=== PATIENT | male | born 1940 | race Caucasian/White ===

== ENCOUNTER 2019-05-14 14:50 | Inpatient (IN) | payer MEDICARE, SELFPAY ==
--- NOTE | ~2019-05-14 | XR_ITS ---
EXAMINATION: XR elbow LT 2V EXAM DATE: 05/17/2019 17:04 INDICATION: Postoperative hardware removal, debridement. TECHNIQUE: Frontal and lateral projections of the left elbow. Comparison is made to prior examinatio n from 05/14/2019. FINDINGS: Proximal ulnar, olecranon plate with supporting screws have been removed, except for proxi mal most screw tip which is extending from the olecranon to coronoid. There is a surgical drain. Post erior surgical soft tissue defect. Soft tissue swelling. Bandage. IMPRESSION: Status post debridement, hardware removal. Reviewed, dictated and finalized at location A. SPECIALIST
--- NOTE | ~2019-05-14 | XR_ITS ---
EXAMINATION: XR elbow LT min 3V DATE: 05/14/2019 15:59 INDICATION: Left elbow erythema. TECHNIQUE: 4 views of left elbow were obtained. COMPARISON: None. FINDINGS: Bone alignment is normal. No acute fracture. There is plate and screw fixation of olecranon . There is soft tissue swelling overlying the olecranon. There is mild elbow joint osteoarthritis. No elbow joint effusion. IMPRESSION: 1. No evidence of osteomyelitis. Reviewed, dictated and finalized at location A. PRODUCT MARKETING
[2019-05-14 15:11] VITALS: BP 116/67; PULSE 96; RESP 16; TEMP 37.1; O2SAT 96
--- NOTE | 2019-05-14 16:09 | ED.WOUNDLAC ---
HPI - Wound/Laceration General Chief Complaint: Wound/Laceration <NICOLE Lawson Last Filed: 05/14/19 17:55> Stated Complaint: infection in elbow/ sent from Dr <NICOLE Lawson Last Filed: 05/14/19 17:55> Time Seen by Provider: 05/14/19 15:30 <NICOLE Lawson Last Filed: 05/14/19 17:55> Source: patient and family <NICOLE Lawson Last Filed: 05/14/19 17:55> Mode of arrival: ambulatory <NICOLE Lawson Last Filed: 05/14/19 17:55> Limitations: dementia <NICOLE Lawson Last Filed: 05/14/19 17:55> History of Present Illness HPI narrative: This is a 78 year old male that presents to the ER for left elbow erythema and drainage x 2 days. Patient with history of dementia so history obtained by . Reports history of hardware in this elbow. They are unsure what doctor did this surgery, they think it was at [facility]. Reports he bumped the elbow a couple months ago and since has had a scab to the area. Reports over the last two days the area became red and swollen and he has had some drainage from the area. Denies fever. <NICOLE Lawson Last Filed: 05/14/19 17:55> Related Data Home Medications: Home Medications Medication Instructions Recorded Confirmed omeprazole 40 mg PO DAILY 03/05/19 03/05/19 megestrol [Megace ES] 1,250 mg PO QAM 05/14/19 05/14/19 naproxen 500 mg PO BID PRN 05/14/19 05/14/19 <NICOLE Lawson Last Filed: 05/14/19 17:55> Allergies/Adverse Reactions: Allergies Allergy/AdvReac Type Severity Reaction Status Date / Time inositol Allergy Unknown Unknown Verified 05/14/19 15:25 mirtazapine Allergy Unknown nightmares Verified 05/14/19 15:25 niacin Allergy Unknown Unknown Verified 05/14/19 15:25 <NICOLE Lawson Filed: 05/14/19 17:55> Review of Systems Review of Systems: Narrative: CONSTITUTIONAL: Denies fever SKIN: Reports erythema and drainage MUSCULOSKELETAL: Reports joint pain, and myalgia. NEUROLOGIC: Denies numbness <Mala Fitch PA-C - Last Filed: 05/14/19 17:55> All systems reviewed & are unremarkable except as noted in HPI and below <Mala Fitch PA-C - Last Filed: 05/14/19 17:55> PMFSH Social History Social History: Social History Social History: he said he has 2 children. He is listed as a full code Smoking packs per day: 1.5 Smoking cigarettes per day: 30.0 Years smoked: 45 Smoking pack-years: 67.50 Smoking status: Former smoker Tobacco type: cigarettes Smokeless tobacco user: chewing tobacco Smoking end date: 03/14/09 Alcohol intake: former Substance use: never Gender identity (if verbalized by the patient): Male Spiritual care concerns: No Agree to blood products: Yes <Mala Fitch PA-C - Last Filed: 05/14/19 17:55> Exam Narrative: Exam Narrative: GENERAL: Elderly, well-nourished, and in no acute distress. HEAD: Normocephalic, atraumatic. EYES: EOMI. CHEST: Clear to auscultation. No respiratory distress. No wheezes rales or rhonchi HEART: Regular rate and rhythm. No murmur heard. Normal peripheral pulses. EXTREMITIES: Normal range of motion. Mild-moderate edema and erythema to the left elbow with central punctum with mild amount of drainage SKIN: Warm, dry, no rash. NEURO: No focal deficits. Alert and oriented x3. PSYCH: Normal mood and affect <Mala Fitch PA-C - Last Filed: 05/14/19 17:55> Course PUBLIC INFORMATION COORDINATOR/PA Physician Supervision For this patient encounter, I reviewed the PUBLIC INFORMATION COORDINATOR or PA documentation, treatment plan, and medical decision making; and I had [id number] time with this patient. 78 yo Male presents with pain, swelling, and non-healing left elbow wound. He has a h/o of prior ORIF to that arm. On exam he has swelling and erythema over the bursa. Will plan to admit for septic bursitis and SANDRA. <Jimenez Loomis MD - Last Filed: 05/14/19 19:23>
[2019-05-14 16:19] LABS: Basophils Absolute Auto 0.1 K/mm3 (0.0-0.1); Basophils Percent Auto 0.6 % (0.2-1.2); Eosinophils Absolute Auto 0.3 K/mm3 (0-0.3); Eosinophils Percent Auto 1.9 % (0-4.4); Hematocrit 44.9 % (42.0-52.0); Immature Granulocyte Percent A 2.2 % (0-0.5); Lymphocytes Absolute Auto 2.08 K/mm3 (0.9-3.2); Lymphocytes Percent Auto 15.4 % (18.3-44.2); Mean Corpuscular HGB Conc 33.4 g/dl (32-36); Mean Corpuscular Hemoglobin 32.7 pg (26-34); Mean Corpuscular Volume 97.8 fl (80-100); Mean Platelet Volume 10.1 fl (7.4-10.4); Monocytes Absolute Auto 1.1 K/mm3 (0.1-0.6); Monocytes Percent Auto 7.9 % (2.6-8.5); Neutrophils Absolute Auto 9.7 K/mm3 (1.3-6.7); Platelet Count Result 159 k/mm3 (150-375); Red Blood Count 4.59 M/mm3 (4.6-6.20); Red Cell Distribution Width 14.3 % (11.5-14.5); White Blood Count 13.5 K/mm3 (4.5-10.0)
[2019-05-14 16:36] LABS: Blood Urea Nitrogen 39 mg/dL (9-20); Calcium 9.4 mg/dL (8.4-10.2); Carbon Dioxide 24 mmol/L (22-30); Chloride 103 mmol/L (98-107); Estimated CRCL calculation 52 ml/min; Estimated Glomerular Filt Rate > 60; Glucose 90 mg/dL (75-110); Potassium 4.7 mmol/L (3.4-5.0); Sodium 139 mmol/L (137-145)
[2019-05-14 16:43] LABS: Erythrocyte Sedimentation Rate 63 mm/hr (0-20)
[2019-05-14 16:47] LABS: CRP 14.7 mg/dL (<1.0)
[2019-05-14] MEDS: SODIUM CHLORIDE 0.9% IV 1,000 ML 999 ML IV CONT (17:21)
--- NOTE | 2019-05-14 18:57 | ADMGEN ---
This patient, Ivania Lezama, was admitted to 2 Medical Room 257-. Patient/family oriented to hospital policies and general routines including ID bracelet, bed and alarms, visiting hours, pain management, procedures, bathroom and other care routines, personal items, smoking policy, room service/diet, and visiting hours. Valuables list has been completed. Information on how to activate the Rapid Response Team has been discussed. Patient/Family are encouraged to report perceived risks to care and to ask questions if they do not understand what they are told or what they should do.
[2019-05-14 19:19] VITALS: BP 140/86; PULSE 79; RESP 22; TEMP 35.8; O2SAT 96
[2019-05-14 20:15] VITALS: O2SAT 96
[2019-05-14] MEDS: SODIUM CHLORIDE 0.9% IV 1,000 ML 125 ML IV CONT (20:24)
[2019-05-14 22:00] VITALS: BP 120/56; PULSE 76; RESP 20; TEMP 36.4; O2SAT 96
[2019-05-15] VITALS (7 sets, daily range): BP systolic 114–121; BP diastolic 48–62; PULSE 72–88; RESP 16–22; TEMP 36.4–37.2; O2SAT 91–95
[2019-05-15] MEDS: SODIUM CHLORIDE 0.9% IV 1,000 ML 125 ML IV CONT ×3 (04:21→20:16)
--- NOTE | 2019-05-15 11:41 | WPDINFPN2 ---
Progress Note: A&P Assessment and Plan (1) Septic bursitis of elbow: Qualifiers: Laterality: left Qualified Code(s): M71.122 - Other infective bursitis, left elbow Code(s): M71.129 - Other infective bursitis, unspecified elbow Status: Acute Assessment and Plan: 1. 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 Staph suspected by gram stain 2. RA with immunosuppression 3. Dementia 4. Protein calorie malnutrition REC Vanc # 2, Ancef #1. F/U sinus tract culture, deep space (at level of hardware) wound culture would also be helpful. Anticipate prolonged IV Rx, 3-4 weeks. Hardware removal if possible, disc with Dr. Ruiz. Subjective Date/time seen: 05/15/19 11:41 Objective Data Vital Signs Vital Signs: Vital Signs - 24 hr 05/14/19 15:11 05/14/19 19:19 05/14/19 20:15 Temperature 37.1 C 35.8 C L Pulse Rate 96 79 Respiratory Rate 16 22 H Blood Pressure 116/67 140/86 Pulse Oximetry 96 96 96 05/14/19 22:00 05/15/19 02:32 05/15/19 06:00 Temperature 36.4 C 36.4 C Pulse Rate 76 72 79 Respiratory Rate 20 16 20 Blood Pressure 120/56 L 116/62 Pulse Oximetry 96 95 93 05/15/19 10:22 Temperature Pulse Rate Respiratory Rate Blood Pressure Pulse Oximetry 91 Intake/Output Intake/Output: Intake & Output 05/12/19 05/13/19 05/14/19 05/15/19 23:59 23:59 23:59 23:59 Intake Total 1350 1254 Output Total 450 Balance 1350 804 Meds/Results Medications: Active Medications Generic Name Dose Route Start Last Admin Trade Name Freq PRN Reason Stop Dose Admin Acetaminophen 1,000 mg in 100 mls @ 400 mls/hr 05/14/19 17:31 Ofirmev 1,000 Mg Ivpb IVPB 05/15/19 17:32 Q6H PRN Mild Pain (1-3) or Fever Sodium Chloride 1,000 mls @ 125 mls/hr 05/14/19 17:45 05/15/19 05:58 Normal Saline Iv IV CONT 125 mls/hr .Q8H YUKI Infusion Vancomycin HCl 1,000 mg in 250 mls @ 250 mls/hr 05/15/19 17:00 Vancomycin 1,000 Mg/D5w 250 Ml IVPB Q24H YUKI Cefazolin Sodium 1 gm in 50 mls @ 100 mls/hr 05/15/19 14:00 Ancef 1 Gm/D5w 50 Ml Pm IVPB Q8HR YUKI Radiology Results: ITS Impressions Elbow X-Ray 05/14/19 16:04 IMPRESSION: 1. No evidence of osteomyelitis. Labs Labs: Laboratory Results - last 24 hr 05/14/19 05/14/19 16:07 16:07 WBC 13.5 H RBC 4.59 L Hgb 15.0 Hct 44.9 MCV 97.8 MCH 32.7 MCHC 33.4 RDW 14.3 Plt Count 159 MPV 10.1 Immature Gran % (Auto) 2.2 H Neut % (Auto) 72.0 Lymph % (Auto) 15.4 L [place] % (Auto) 7.9 Eos % (Auto) 1.9 Baso % (Auto) 0.6 Lymph # (Auto) 2.08 [place] # (Auto) 1.1 H Eos # (Auto) 0.3 Baso # (Auto) 0.1 Abs Immat Gran (auto) 0.30 H Absolute Neuts (auto) 9.7 H Absolute Nucleated RBC 0.0 Nucleated RBC % 0.0 ESR 63 H Sodium 139 Potassium 4.7 Chloride 103 Carbon Dioxide 24 BUN 39 H D Creatinine 1.00 Estim Creat Clear Calc 52 Estimated GFR > 60 Glucose 90 Calcium 9.4 C-Reactive Protein 14.7 H
--- NOTE | 2019-05-15 12:07 | PM.CNOR ---
Assessment and Plan Assessment and plan (1) Septic bursitis of elbow: Qualifiers: Laterality: left Qualified Code(s): M71.122 - Other infective bursitis, left elbow Code(s): M71.129 - Other infective bursitis, unspecified elbow Status: Acute Assessment and Plan: 78-year-old male who has got a septic olecranon bursitis left elbow. I discussed the situation with the patient, his daughter and also with Dr. Barraza the infectious disease specialist. The best course of action is going to be to remove the hardware a medical clearance. I have spoken also with Dr. Erazo regarding this. Tentatively this is scheduled for May 16. This should be enough time to get him tuned up medically. He is currently on antibiotics and the tissue cultures are waiting. We will plan on obtaining more cultures at the time of surgery. Risks and potential complications were discussed in detail and questions answered. Thank you for the consultation. History of Present Illness HPI Consult date: 05/15/19 Consult reason: other ( Septic bursitis left elbow) Chief complaint: infection in elbow/ sent from Dr Champion: 78-year-old male who has got a septic bursitis is left elbow. According to his daughter, he had an injury to this in February which sounds like a contusion. Gradually, the skin broke down and he developed a small area of drainage which had been treated with local care. It had apparently healed left however over this past weekend it to the point that he was admitted to the hospital through the ER for management of this. Review of Systems Constitutional: Constitutional: Reports no additional constitutional complaints, Denies excessive sweating and Denies fatigue Eyes: Eyes: Reports no additional eye complaints ENT: Reports system reviewed and no additional complaints, except as documented Cardiovascular: Cardiovascular: Denies chest pain at rest and Denies dyspnea Respiratory: Respiratory: Reports no additional respiratory complaints and Denies dyspnea Gastrointestinal: Gastrointestinal: Reports no additional gastrointestinal complaints Musculoskeletal: Musculoskeletal: Reports as per HPI Integumentary/Breasts: Skin/Breast: Reports system reviewed and no additional complaints, except as docu Neurologic: Reports as per HPI Endocrine: Endocrine: Denies excessive sweating and Denies fatigue Hematologic/Lymphatic: Hematologic/Lymphatic: Denies easy bleeding and Denies easy bruising PMFSH Past Medical History Medical History (Updated 05/14/19 @ 17:55 by Mala Fitch PA-C) Dysphagia Esophageal stricture GERD with esophagitis Hard of hearing Laryngeal cancer Pneumonia Rheumatoid arthritis Serotonin syndrome Surgical History Surgical History (Updated 05/15/19 @ 12:44 by Truong Ruiz MD) Fracture of left olecranon process ORIF in 2008 Hx of cholecystectomy Hx of tracheostomy S/P right hip fracture 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 He is listed as a full code Smoking packs per day: 1.5 Smoking cigarettes per day: 30.0 Years smoked: 45 Smoking pack-years: 67.50 Smoking status: Former smoker Tobacco type: cigarettes Smokeless tobacco user: chewing tobacco Smoking end date: 03/14/09 Additional smoking assessment comments: CURRENTLY CHEWS TOBACCO Alcohol intake: former Substance use: never Gender identity (if verbalized by the patient): Male Spiritual care concerns: No Agree to blood products: Yes Meds Home Medications and Allergies Home Medications Medication Instructions Recorded Confirmed Type omeprazole 40 mg PO DAILY 03/05/19 05/14/19 History cyanocobalamin (vitamin B-12) 1,000 mcg PO DAILY #30 cap 03/07/19 05/14/19 Rx escitalopram oxalate 5 mg tablet 5 mg PO DAILY #30 tablet 04/13/19 05/14/19 Rx memantine 10
--- NOTE | 2019-05-15 13:42 | CONS_ITS ---
DATE OF CONSULTATION: 05/15/2019 REASON FOR CONSULTATION: Left elbow infection. HISTORY OF PRESENT ILLNESS: The patient is a 78-year-old male who has some degree of dementia and cannot provide a comprehensive history, but his daughter is at the bedside and is able to do so. The patient had fracture of the proximal radius, which was repaired with plate and screws at [facility] approximately 11 years ago. He since then has also had bipolar replacement. He has known rheumatoid arthritis and until last fall was receiving every 3 months Remicade infusions. He then advanced to every 2 months due to flare of his arthritis and is due for his 3rd dose at that schedule at the end of this month. He does have occasional recurrent falls and was here in the hospital in February, but that time had no trauma to the left elbow rather to the left ribs. Sometime soon thereafter, he developed a crusted lesion over the olecranon on the left side, which seemed to heal. However, beginning 3 days before the present admission, spontaneous drainage of cloudy fluid began in the same area of the olecranon with associated redness, swelling, and some pain. He saw Dr. Manriquez surgical processor on the day of admission, was sent to the emergency room for admission. He was started on vancomycin and ceftriaxone yesterday, now continues on the same. He has otherwise been on no recent antibiotics. No fever, chills, sweats, known trauma except as above, prior operations to the elbow. When he does have flare of his arthritis, this involves multiple joints over the hands. ALLERGIES: NONE PERTINENT. HABITS: Quit smoking in 2009. No alcohol. PRESENT MEDICATION LIST: No ongoing immunosuppressants except as above. PAST MEDICAL HISTORY: In addition to the above, esophageal stricture, hearing loss, past pneumonia, serotonin syndrome, cholecystectomy, and tracheostomy. He is not on home O2. 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 FAMILY HISTORY: Colon cancer, bone cancer. SOCIAL HISTORY: He has a 24-hour care at home. Two children. Retired. REVIEW OF SYSTEMS: Limited by the patient's memory and communicative ability. A 14-point review otherwise negative. He has gained back the 10 pounds of weight loss that occurred in February. PHYSICAL EXAMINATION: GENERAL: This is a chronically ill-appearing male, thin, not cachectic, no acute distress. VITAL SIGNS: Afebrile since arrival 116/62, 79, 20, 91% to 96%. He is on no supplemental oxygen. SKIN: Normal turgor. Warm and dry. No rashes. NODES: He has no axillary or cervical adenopathy. EENT: The pupils equal, round, and reactive to light. The oropharynx, oral mucosa are clear. NECK: Open tracheostomy in place without any introducer. No neck masses. Neck is symmetric. LUNGS: Mildly diminished breath sounds, otherwise, clear to auscultation and percussion. CHEST: Equal expansion. Normal AP diameter. CARDIAC: Soft, S1, S2. Regular rate and rhythm. No murmurs or gallops. ABDOMEN: Nontender, soft. No organomegaly. No masses. EXTREMITIES: Without clubbing, cyanosis, or edema. MUSCULOSKELETAL: Over the left elbow, he has minimal erythema and edema with an open 0.5 cm wound. He has good range of motion of the elbow. No tenderness. NEUROVASCULAR: Intact distally. LABORATORY DATA: From the office, Gram stain, few white cells and few gram-positive cocci in clusters. Culture is ongoing. Blood cultures, no growth after very short incubation. MRSA screen also in process. His white blood cell count 13.5, hemoglobin 15.0, and platelets are 159. He has a minimal left shift on differential. His chemistry panel normal except for BUN 39, previously was 13. His CRP 14.7. RADIOLOGICAL DATA:
--- NOTE | 2019-05-15 17:14 | PM.IMHP ---
H&P: HPI History of Present Illness Chief complaint: infection in elbow/ sent from Dr Champion: Ivania Lezama is a 78 year old male with mild dementia no family member is present provide detailed review of symptoms most of the history is recorded from the chart and talking with the patient, patient with history of rheumatoid arthritis on and treated with Remicade, could not history patient had a fracture of the left elbow 11 years ago any to was repaired with plate and screws, the patient had injured the left elbow and developed redness swelling and presented emergency department further evaluation is seems to have significant infection with abscess and got a septic olecranon bursitis left elbow patient is seen by orthopedic surgeon and recommending patient will benefit from removing hardware which were placed 11 years ago to clean out infection. Patient has had surgery in the past, there is no complication, and stay his no history of cardiac issues he is able to ambulate and able to climb states without any chest pain or shortness of breath, currently denies any fever or chills, patient is scheduled for surgery on Review of Systems Review of Systems: All systems reviewed & are unremarkable except as noted in HPI and below PMFSH Past Medical History Medical History (Updated 05/14/19 @ 17:55 by Mala Fitch PA-C) Dysphagia Esophageal stricture GERD with esophagitis Hard of hearing Laryngeal cancer Pneumonia Rheumatoid arthritis Serotonin syndrome Surgical History Surgical History (Updated 05/15/19 @ 12:44 by Truong Ruiz MD) Fracture of left olecranon process ORIF in 2008 Hx of cholecystectomy Hx of tracheostomy S/P right hip fracture 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 He is listed as a full code Smoking packs per day: 1.5 Smoking cigarettes per day: 30.0 Years smoked: 45 Smoking pack-years: 67.50 Smoking status: Former smoker Tobacco type: cigarettes Smokeless tobacco user: chewing tobacco Smoking end date: 03/14/09 Additional smoking assessment comments: CURRENTLY CHEWS TOBACCO Alcohol intake: former Substance use: never Gender identity (if verbalized by the patient): Male Spiritual care concerns: No Agree to blood products: Yes Meds Home Medications and Allergies Home Medications Medication Instructions Recorded Confirmed Type omeprazole 40 mg PO DAILY 03/05/19 05/14/19 History cyanocobalamin (vitamin B-12) 1,000 mcg PO DAILY #30 cap 03/07/19 05/14/19 Rx escitalopram oxalate 5 mg tablet 5 mg PO DAILY #30 tablet 04/13/19 05/14/19 Rx memantine 10 mg tablet 10 mg PO BID #60 tablet 04/13/19 05/14/19 Rx megestrol [Megace ES] 1,250 mg PO QAM 05/14/19 05/14/19 History naproxen 500 mg PO BID PRN 05/14/19 05/14/19 History Allergies Allergy/AdvReac Type Severity Reaction Status Date / Time inositol Allergy Unknown Unknown Verified 05/14/19 15:25 mirtazapine Allergy Unknown nightmares Verified 05/14/19 15:25 niacin Allergy Unknown Unknown Verified 05/14/19 15:25 Vital Signs Vital Signs - 24 hr 05/14/19 19:19 05/14/19 20:15 05/14/19 22:00 Temperature 96.5 F L 97.6 F Pulse Rate 79 76 Respiratory Rate 22 H 20 Blood Pressure 140/86 120/56 L Pulse Oximetry 96 96 96 05/15/19 02:32 05/15/19 06:00 05/15/19 10:22 Temperature 97.6 F Pulse Rate 72 79 Respiratory Rate 16 20 Blood Pressure 116/62 Pulse Oximetry 95 93 91 Exam Const: General: comfortable and no acute distress HENMT: General nose exam: Normal nares present Mouth: Yes moist mucous membranes Eyes: General: appearance normal, both eyes and all related structures Sclera: sclerae normal Neck: Other: Patient with laryngeal cancer and laryngectomy Chest: Other: There is no obvious deformity Resp: Effort & Inspection: normal respiratory effort Auscult
[2019-05-16] MEDS: SODIUM CHLORIDE 0.9% IV 1,000 ML 125 ML IV CONT ×3 (02:30→21:40)
[2019-05-16 06:00] VITALS: BP 149/50; PULSE 84; RESP 22; TEMP 37.4; O2SAT 97
[2019-05-16 06:01] LABS: Basophils Absolute Auto 0.1 K/mm3 (0.0-0.1); Basophils Percent Auto 0.8 % (0.2-1.2); Eosinophils Absolute Auto 0.3 K/mm3 (0-0.3); Eosinophils Percent Auto 3.4 % (0-4.4); Hematocrit 36.9 % (42.0-52.0); Hemoglobin 12.6 g/dL (14.0-18.0); Immature Granulocyte Absolute 0.33 K/mm3 (0.00-0.031); Immature Granulocyte Percent A 4.3 % (0-0.5); Lymphocytes Absolute Auto 1.75 K/mm3 (0.9-3.2); Lymphocytes Percent Auto 22.8 % (18.3-44.2); Mean Corpuscular HGB Conc 34.1 g/dl (32-36); Mean Corpuscular Hemoglobin 32.7 pg (26-34); Mean Corpuscular Volume 95.8 fl (80-100); Mean Platelet Volume 10.1 fl (7.4-10.4); Monocytes Absolute Auto 0.8 K/mm3 (0.1-0.6); Monocytes Percent Auto 9.8 % (2.6-8.5); Neutrophils Absolute Auto 4.5 K/mm3 (1.3-6.7); Neutrophils Percent Auto 58.9 % (45.5-73.1); Platelet Count Result 156 k/mm3 (150-375); Red Blood Count 3.85 M/mm3 (4.6-6.20); Red Cell Distribution Width 14.4 % (11.5-14.5); White Blood Count 7.7 K/mm3 (4.5-10.0)
[2019-05-16 06:37] LABS: Blood Urea Nitrogen 17 mg/dL (9-20); Calcium 8.3 mg/dL (8.4-10.2); Carbon Dioxide 21 mmol/L (22-30); Chloride 109 mmol/L (98-107); Estimated CRCL calculation 64 ml/min; Estimated Glomerular Filt Rate > 60; Glucose 86 mg/dL (75-110); Potassium 3.7 mmol/L (3.4-5.0); Sodium 137 mmol/L (137-145)
[2019-05-16 08:00] VITALS: O2SAT 95
--- NOTE | 2019-05-16 09:04 | PC.NURSE ---
DR GUNN NOTIFIED OF PATIENT POSITIVE FOR MRSA NARES
[2019-05-16] MEDS: MUPIROCIN 2% OINT 22 GM TUBE 1 APPLIC EACH NARE ×2 (10:53→21:39)
--- NOTE | 2019-05-16 11:59 | WPDINFPN2 ---
Progress Note: A&P Assessment and Plan (1) Septic bursitis of elbow: Qualifiers: Laterality: left Qualified Code(s): M71.122 - Other infective bursitis, left elbow Code(s): M71.129 - Other infective bursitis, unspecified elbow Status: Acute Assessment and Plan: 1. 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 Staph aureus isolated, which may or may not represent the underlying pathogen 2. RA with immunosuppression 3. Dementia 4. 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 Deep space (at level of hardware) wound culture would also be helpful. Anticipate prolonged IV Rx, 3-4 weeks. Hardware removal anticipated tomorrow. Daughter not at bedside currently Subjective Date/time seen: 05/16/19 11:59 Objective Data Vital Signs Vital Signs: Vital Signs - 24 hr 05/15/19 14:00 05/15/19 19:08 05/15/19 20:05 Temperature 36.5 C Pulse Rate 88 Respiratory Rate 22 H Blood Pressure 114/48 L Pulse Oximetry 92 93 95 05/15/19 22:00 05/16/19 06:00 Temperature 37.2 C 37.4 C Pulse Rate 77 84 Respiratory Rate 22 H 22 H Blood Pressure 121/51 L 149/50 H Pulse Oximetry 91 97 Intake/Output Intake/Output: Intake & Output 05/13/19 05/14/19 05/15/19 05/16/19 23:59 23:59 23:59 23:59 Intake Total 1350 3700 2050 Output Total 1275 1300 Balance 1350 2425 750 Meds/Results Medications: Active Medications Generic Name Dose Route Start Last Admin Trade Name Freq PRN Reason Stop Dose Admin Sodium Chloride 1,000 mls @ 125 mls/hr 05/14/19 17:45 05/16/19 10:52 Normal Saline Iv IV CONT 125 mls/hr .Q8H YUKI Administration Vancomycin HCl 1,000 mg in 250 mls @ 250 mls/hr 05/15/19 17:00 05/15/19 19:08 Vancomycin 1,000 Mg/D5w 250 Ml IVPB Infused Q24H YUKI Infusion Cefazolin Sodium 1 gm in 50 mls @ 100 mls/hr 05/15/19 14:00 05/16/19 06:25 Ancef 1 Gm/D5w 50 Ml Pm IVPB Infused Q8HR [facility] Infusion Mupirocin 1 applic 05/16/19 09:20 05/16/19 10:53 Bactroban 2% Oint EACH NARE 05/20/19 21:01 1 applic Q12HR YUKI Administration Saccharomyces Boulardii 250 mg 05/16/19 13:00 Florastor PO TID [facility] Radiology Results: ITS Impressions Elbow X-Ray 05/14/19 16:04 IMPRESSION: 1. No evidence of osteomyelitis. Labs Labs: Laboratory Results - last 24 hr 05/16/19 05/16/19 05:01 05:01 WBC 7.7 RBC 3.85 L Hgb 12.6 L Hct 36.9 L MCV 95.8 MCH 32.7 MCHC 34.1 RDW 14.4 Plt Count 156 MPV 10.1 Immature Gran % (Auto) 4.3 H Neut % (Auto) 58.9 Lymph % (Auto) 22.8 [place] % (Auto) 9.8 H Eos % (Auto) 3.4 Baso % (Auto) 0.8 Lymph # (Auto) 1.75 [place] # (Auto) 0.8 H Eos # (Auto) 0.3 Baso # (Auto) 0.1 Abs Immat Gran (auto) 0.33 H Absolute Neuts (auto) 4.5 Absolute Nucleated RBC 0.0 Nucleated RBC % 0.0 Sodium 137 Potassium 3.7 Chloride 109 H Carbon Dioxide 21 L BUN 17 D Creatinine 0.80 Estim Creat Clear Calc 64 Estimated GFR > 60 Glucose 86 Calcium 8.3 L
[2019-05-16] MEDS: SACCHAROMYCES BOULARDII 250 MG CAPSULE PO ×2 (12:21→17:04)
[2019-05-16 14:00] VITALS: BP 131/62; PULSE 80; RESP 18; TEMP 36.6; O2SAT 92
--- NOTE | 2019-05-16 15:09 | PM.IMPN ---
Progress Note: A&P Assessment and Plan (1) Septic bursitis of elbow: Qualifiers: Laterality: left Qualified Code(s): M71.122 - Other infective bursitis, left elbow Code(s): M71.129 - Other infective bursitis, unspecified elbow Status: Acute Assessment and Plan: 05/16/19 15:09 Ivania Lezama is a 78 year old male with mild dementia no family member is present provide detailed review of symptoms most of the history is recorded from the chart and talking with the patient, patient with history of rheumatoid arthritis on and treated with Remicade, could not history patient had a fracture of the left elbow 11 years ago any to was repaired with plate and screws, the patient had injured the left elbow and developed redness swelling and presented emergency department further evaluation is seems to have significant infection with abscess and got a septic olecranon bursitis left elbow patient is seen by orthopedic surgeon and recommending patient will benefit from removing hardware which were placed 11 years ago to clean out infection. Patient has had surgery in the past, there is no complication, and stay his no history of cardiac issues he is able to ambulate and able to climb states without any chest pain or shortness of breath, patient has no new complaints is positive nasal MRSA currently denies any fever or chills, patient is scheduled for surgery on (2) Acute kidney injury: Code(s): N17.9 - Acute kidney failure, unspecified Status: Acute Assessment and Plan: Appears to be pre azotemia most likely secondary to dehydration will gently hydrate the patient and monitor kidney function (3) Dementia: Qualifiers: Dementia behavioral disturbance: with behavioral disturbance Dementia type: unspecified type Qualified Code(s): F03.91 - Unspecified dementia with behavioral disturbance Code(s): F03.90 - Unspecified dementia without behavioral disturbance Status: Acute Assessment and Plan: Patient is clinically stable (4) Urinary retention: Code(s): R33.9 - Retention of urine, unspecified Status: Acute Assessment and Plan: Will continue home regimen Subjective Date/time seen: 05/16/19 15:09 Ivania Lezama is a 78 year old male with mild dementia no family member is present provide detailed review of symptoms most of the history is recorded from the chart and talking with the patient, patient with history of rheumatoid arthritis on and treated with Remicade, could not history patient had a fracture of the left elbow 11 years ago any to was repaired with plate and screws, the patient had injured the left elbow and developed redness swelling and presented emergency department further evaluation is seems to have significant infection with abscess and got a septic olecranon bursitis left elbow patient is seen by orthopedic surgeon and recommending patient will benefit from removing hardware which were placed 11 years ago to clean out infection. Patient has had surgery in the past, there is no complication, and stay his no history of cardiac issues he is able to ambulate and able to climb states without any chest pain or shortness of breath, patient has no new complaints is positive nasal MRSA currently denies any fever or chills, patient is scheduled for surgery on Review of Systems Review of Systems: All systems reviewed & are unremarkable except as noted in HPI and below Exam Const: General: comfortable and no acute distress HENMT: General nose exam: Normal nares present Mouth: Yes moist mucous membranes Eyes: General: appearance normal, both eyes and all related structures Sclera: sclerae normal Neck: Other: Patient with laryngeal cancer and laryngectomy Chest: Other: There is no obvious deformity Resp: Effort & Inspection: normal respiratory effort Auscultation: clear to auscultation bilaterally Cardio: Rate: regular rate Rhy
[2019-05-16 22:00] VITALS: BP 1227/68; PULSE 71; RESP 20; TEMP 36.6; O2SAT 96
[2019-05-17] VITALS (13 sets, daily range): BP systolic 147–182; BP diastolic 54–90; PULSE 65–85; RESP 16–22; TEMP 36.2–37.1; O2SAT 93–100
[2019-05-17 06:07] LABS: Basophils Absolute Auto 0.1 K/mm3 (0.0-0.1); Basophils Percent Auto 0.7 % (0.2-1.2); Blood Urea Nitrogen 13 mg/dL (9-20); Calcium 8.3 mg/dL (8.4-10.2); Carbon Dioxide 20 mmol/L (22-30); Chloride 108 mmol/L (98-107); Eosinophils Absolute Auto 0.3 K/mm3 (0-0.3); Eosinophils Percent Auto 3.6 % (0-4.4); Estimated CRCL calculation 64 ml/min; Estimated Glomerular Filt Rate > 60; Glucose 86 mg/dL (75-110); Hematocrit 38.5 % (42.0-52.0); Hemoglobin 12.9 g/dL (14.0-18.0); Immature Granulocyte Absolute 0.31 K/mm3 (0.00-0.031); Immature Granulocyte Percent A 4.4 % (0-0.5); Lymphocytes Absolute Auto 1.77 K/mm3 (0.9-3.2); Lymphocytes Percent Auto 25.3 % (18.3-44.2); Mean Corpuscular HGB Conc 33.5 g/dl (32-36); Mean Corpuscular Hemoglobin 31.9 pg (26-34); Mean Corpuscular Volume 95.3 fl (80-100); Monocytes Absolute Auto 0.7 K/mm3 (0.1-0.6); Monocytes Percent Auto 9.6 % (2.6-8.5); Neutrophils Absolute Auto 3.9 K/mm3 (1.3-6.7); Neutrophils Percent Auto 56.4 % (45.5-73.1); Platelet Count Result 163 k/mm3 (150-375); Potassium 3.7 mmol/L (3.4-5.0); Red Blood Count 4.04 M/mm3 (4.6-6.20); Red Cell Distribution Width 14.1 % (11.5-14.5); Sodium 139 mmol/L (137-145)
[2019-05-17] MEDS: SODIUM CHLORIDE 0.9% IV 1,000 ML 125 ML IV CONT ×2 (06:22→17:57)
--- NOTE | 2019-05-17 08:42 | WPDANESEPPF ---
Anes - Initial Pre Proc Eval Procedure: Operation Date: 05/17/19 13:00 Proposed Procedures p Incision And Drainage Left Olecranon - Truong Ruiz MD s Removal Hardware Left Elbow - Truong Ruiz MD Date/Time: 05/17/19 08:42 Surgeon: Vinh Christina MD Pre Op Diagnosis: infection in elbow/ sent from Dr Patient Data Age: 78 Gender: M Height: 1.8 m Weight: 69 kg Last Vital Signs Temp 37.1 C 05/17/19 06:00 Pulse 85 05/17/19 06:00 Resp 22 H 05/17/19 06:00 BP 159/74 H 05/17/19 06:00 Pulse Ox 98 05/17/19 06:00 Allergies Allergy/AdvReac Type Severity Reaction Status Date / Time inositol Allergy Unknown Unknown Verified 05/17/19 12:32 mirtazapine Allergy Unknown nightmares Verified 05/17/19 12:32 niacin Allergy Unknown Unknown Verified 05/17/19 12:32 Home Medications Medication Instructions Recorded Confirmed Type omeprazole 40 mg PO DAILY 03/05/19 05/14/19 History cyanocobalamin (vitamin B-12) 1,000 mcg PO DAILY #30 cap 03/07/19 05/14/19 Rx escitalopram oxalate 5 mg tablet 5 mg PO DAILY #30 tablet 04/13/19 05/14/19 Rx memantine 10 mg tablet 10 mg PO BID #60 tablet 04/13/19 05/14/19 Rx megestrol [Megace ES] 1,250 mg PO QAM 05/14/19 05/14/19 History naproxen 500 mg PO BID PRN 05/14/19 05/14/19 History Laboratory Tests 05/17/19 05/17/19 05:33 05:33 WBC 7.0 K/mm3 K/mm3 (4.5-10.0) RBC 4.04 M/mm3 L M/mm3 (4.6-6.20) Hgb 12.9 g/dL L g/dL (14.0-18.0) Hct 38.5 % L % (42.0-52.0) MCV 95.3 fl fl (80-100) MCH 31.9 pg pg (26-34) MCHC 33.5 g/dl g/dl (32-36) RDW 14.1 % % (11.5-14.5) Plt Count 163 k/mm3 k/mm3 (150-375) MPV 10.0 fl fl (7.4-10.4) Immature Gran % (Auto) 4.4 % H % (0-0.5) Neut % (Auto) 56.4 % % (45.5-73.1) Lymph % (Auto) 25.3 % % (18.3-44.2) [place] % (Auto) 9.6 % H % (2.6-8.5) Eos % (Auto) 3.6 % % (0-4.4) Baso % (Auto) 0.7 % % (0.2-1.2) Lymph # (Auto) 1.77 K/mm3 K/mm3 (0.9-3.2) [place] # (Auto) 0.7 K/mm3 H K/mm3 (0.1-0.6) Eos # (Auto) 0.3 K/mm3 K/mm3 (0-0.3) Baso # (Auto) 0.1 K/mm3 K/mm3 (0.0-0.1) Abs Immat Gran (auto) 0.31 K/mm3 H K/mm3 (0.00-0.031) Absolute Neuts (auto) 3.9 K/mm3 K/mm3 (1.3-6.7) Absolute Nucleated RBC 0.0 K/mm3 K/mm3 (0.0-0.012) Nucleated RBC % 0.0 % % (0.0-0.2) Sodium 139 mmol/L mmol/L (137-145) Potassium 3.7 mmol/L mmol/L (3.4-5.0) Chloride 108 mmol/L H mmol/L (98-107) Carbon Dioxide 20 mmol/L L mmol/L (22-30) BUN 13 mg/dL mg/dL (9-20) Creatinine 0.80 mg/dL mg/dL (0.7-1.3) Estim Creat Clear Calc 64 ml/min ml/min Estimated GFR > 60 (59 - ) Glucose 86 mg/dL mg/dL (75-110) Calcium 8.3 mg/dL L mg/dL (8.4-10.2) ECG: Date of Service: 03/05/19 Procedure(s): CA 12 lead EKG Accession Number(s): [id number] cc: ~ Measurements Intervals [employer] Rate: 71 P: 49 ND: 189 QRS: 34 QRSD: 142 T: 17 QT: 422 QTc: 459 Interpretive Statements SINUS RHYTHM RIGHT BUNDLE BRANCH BLOCK LATERAL INFARCT, AGE INDETERMINATE INFERIOR INFARCT, AGE INDETERMINATE BASELINE ARTIFACT- V3 ABNORMAL ECG Electronically Signed On 03-05-2019 9:21:10 [employer]ORATORY ASSOCIATE by Eddie Seals D.O. Dictated By: Eddie Seals DO 03/05/19 0852 Patient hx anesthesia problems: none Family hx anesthesia problems: none [facility] Past Medical History Medical History (Updated 05/17/19 @ 08:43 by Hans Medina MD) Acute kidney injury Cancer epiglottis, STAGE 3 Confusion Dementia Depression Dysphagia Esophageal stricture
--- NOTE | 2019-05-17 12:05 | PC.NURSE ---
To surgery with OR staff. Daughter with patient.
[2019-05-17] MEDS: LACTATED RINGERS 1,000 ML 30 ML IV CONT (12:15)
--- NOTE | 2019-05-17 12:50 | PM.IMPN ---
Progress Note: A&P Assessment and Plan (1) Septic bursitis of elbow: Qualifiers: Laterality: left Qualified Code(s): M71.122 - Other infective bursitis, left elbow Code(s): M71.129 - Other infective bursitis, unspecified elbow Status: Acute Assessment and Plan: 05/17/19 12:50 Ivania Lezama is a 78 year old male with mild dementia no family member is present provide detailed review of symptoms most of the history is recorded from the chart and talking with the patient, patient with history of rheumatoid arthritis on and treated with Remicade, could not history patient had a fracture of the left elbow 11 years ago any to was repaired with plate and screws, the patient had injured the left elbow and developed redness swelling and presented emergency department further evaluation is seems to have significant infection with abscess and got a septic olecranon bursitis left elbow patient is seen by orthopedic surgeon and recommending patient will benefit from removing hardware which were placed 11 years ago to clean out infection. Patient has had surgery in the past, there is no complication, and stay his no history of cardiac issues he is able to ambulate and able to climb states without any chest pain or shortness of breath, patient has no new complaints is positive nasal MRSA patient is treated with Ancef and vancomycin, currently denies any fever or chills, patient is scheduled for surgery later today daughter is present in the room (2) Acute kidney injury: Code(s): N17.9 - Acute kidney failure, unspecified Status: Acute Assessment and Plan: Appears to be pre azotemia most likely secondary to dehydration will gently hydrate the patient and monitor kidney function (3) Dementia: Qualifiers: Dementia type: unspecified type Dementia behavioral disturbance: with behavioral disturbance Qualified Code(s): F03.91 - Unspecified dementia with behavioral disturbance Code(s): F03.90 - Unspecified dementia without behavioral disturbance Status: Acute Assessment and Plan: Patient is clinically stable (4) Urinary retention: Code(s): R33.9 - Retention of urine, unspecified Status: Acute Assessment and Plan: Will continue home regimen Subjective Date/time seen: 05/17/19 12:50 Ivania Lezama is a 78 year old male with mild dementia no family member is present provide detailed review of symptoms most of the history is recorded from the chart and talking with the patient, patient with history of rheumatoid arthritis on and treated with Remicade, could not history patient had a fracture of the left elbow 11 years ago any to was repaired with plate and screws, the patient had injured the left elbow and developed redness swelling and presented emergency department further evaluation is seems to have significant infection with abscess and got a septic olecranon bursitis left elbow patient is seen by orthopedic surgeon and recommending patient will benefit from removing hardware which were placed 11 years ago to clean out infection. Patient has had surgery in the past, there is no complication, and stay his no history of cardiac issues he is able to ambulate and able to climb states without any chest pain or shortness of breath, patient has no new complaints is positive nasal MRSA patient is treated with Ancef and vancomycin, currently denies any fever or chills, patient is scheduled for surgery later today daughter is present in the room Review of Systems Review of Systems: All systems reviewed & are unremarkable except as noted in HPI and below Exam Const: General: comfortable and no acute distress HENMT: General nose exam: Normal nares present Mouth: Yes moist mucous membranes Eyes: General: appearance normal, both eyes and all related structures Sclera: sclerae normal Neck: Other: Patient with laryngeal cancer and laryngectomy Chest: Other: There is no
--- NOTE | 2019-05-17 14:46 | WPDPN ---
Objective Data Vital Signs Vital Signs: Vital Signs - 24 hr 05/16/19 22:00 05/17/19 06:00 05/17/19 09:00 Temperature 36.6 C 37.1 C Pulse Rate 71 85 Respiratory Rate 20 22 H Blood Pressure 1227/68 H 159/74 H Pulse Oximetry 96 98 95 05/17/19 12:15 Temperature 37.1 C Pulse Rate 67 Respiratory Rate 18 Blood Pressure 147/70 H Pulse Oximetry 100 Intake/Output Intake/Output: Intake & Output 05/14/19 05/15/19 05/16/19 05/17/19 23:59 23:59 23:59 23:59 Intake Total 1350 3700 3620 1240 Output Total 1275 2150 800 Balance 1350 2425 1470 440 Meds/Results Medications: Active Medications Generic Name Dose Route Start Last Admin Trade Name Freq PRN Reason Stop Dose Admin Fentanyl Citrate 25 mcg 05/17/19 07:23 Sublimaze IV PUSH Q2M PRN Pain Hydromorphone HCl 0.25 mg 05/17/19 07:23 Dilaudid Inj IV PUSH Q5M PRN Pain Sodium Chloride 1,000 mls @ 125 mls/hr 05/14/19 17:45 05/17/19 06:22 Normal Saline Iv IV CONT 125 mls/hr .Q8H YUKI Administration Vancomycin HCl 1,000 mg in 250 mls @ 250 mls/hr 05/15/19 17:00 05/16/19 18:04 Vancomycin 1,000 Mg/D5w 250 Ml IVPB Infused Q24H YUKI Infusion Cefazolin Sodium 1 gm in 50 mls @ 100 mls/hr 05/15/19 14:00 05/17/19 06:45 Ancef 1 Gm/D5w 50 Ml Pm IVPB Infused Q8HR YUKI Infusion Lactated Ringer's 1,000 mls @ 30 mls/hr 05/17/19 07:25 05/17/19 12:15 Lr - Lactated Ringers Iv IV CONT 30 mls/hr .Q24H YUKI Administration Lactated Ringer's 1,000 mls @ 30 mls/hr 05/17/19 07:25 Lr - Lactated Ringers Iv IV CONT .Q24H YUKI Mupirocin 1 applic 05/16/19 09:20 05/16/19 21:39 Bactroban 2% Oint EACH NARE 05/20/19 21:01 1 applic Q12HR YUKI Administration Ondansetron HCl 4 mg 05/17/19 07:23 Zofran Inj IV PUSH ONCE PRN Nausea Saccharomyces Boulardii 250 mg 05/16/19 13:00 05/17/19 12:44 Florastor PO Not Given TID [facility] Radiology Results: ITS Impressions Elbow X-Ray 05/14/19 16:04 IMPRESSION: 1. No evidence of osteomyelitis. Labs Labs: Laboratory Results - last 24 hr 05/17/19 05/17/19 05:33 05:33 WBC 7.0 RBC 4.04 L Hgb 12.9 L Hct 38.5 L MCV 95.3 MCH 31.9 MCHC 33.5 RDW 14.1 Plt Count 163 MPV 10.0 Immature Gran % (Auto) 4.4 H Neut % (Auto) 56.4 Lymph % (Auto) 25.3 [place] % (Auto) 9.6 H Eos % (Auto) 3.6 Baso % (Auto) 0.7 Lymph # (Auto) 1.77 [place] # (Auto) 0.7 H Eos # (Auto) 0.3 Baso # (Auto) 0.1 Abs Immat Gran (auto) 0.31 H Absolute Neuts (auto) 3.9 Absolute Nucleated RBC 0.0 Nucleated RBC % 0.0 Sodium 139 Potassium 3.7 Chloride 108 H Carbon Dioxide 20 L BUN 13 Creatinine 0.80 Estim Creat Clear Calc 64 Estimated GFR > 60 Glucose 86 Calcium 8.3 L Quality VTE Prophylaxis VTE prophylaxis: mechanical ordered
[2019-05-17] MEDS: KETOROLAC 30 MG/ML VIAL (*BKC) IV PUSH (15:55)
--- NOTE | 2019-05-17 16:35 | P.OP_ITS ---
Procedure Note - Detailed Date of procedure: 05/17/19 Pre-op diagnosis: infection in elbow/ sent from Septic bursitis left olecranon bursa Post-op diagnosis: same Procedure performed: Debridement left olecranon bursa with removal of olecranon hardware Description of procedure: Patient was identified proper site identified. He was taken to the operating room and transferred to the OR table placing him supine taking care to pad his torso and extremities. After general anesthetic induction and intubation, a nonsterile tourniquet was placed high on left arm. Left upper extremity was prepped and draped free in the usual sterile fashion. Extremities exsanguinated with gravity and the tourniquet was then inflated to 200 mmHg remaining up for about 16 minutes. The original scar was used to access the elbow creating full-thickness skin flaps. This was carried directly down to the plate which was exposed. All of the screws except for the home run screw were able to be removed without difficulty. That one seemed to have been cold welded to the plate so the tourniquet was released and the [place] high- speed bur was used to grind off the screw head which allowed removal for the plate. Unfortunately when this happened the screw broke off about 5 mm from the and. The only way to retrieve the shank of the screw would be to use atrial fine which would leave a very large hole in the olecranon so the decision was made to leave it. A very thorough debridement of the scar tissue was carried out. Prior to the plate removal a deep culture was taken and sent to the lab. The wound was irrigated with a copious amount of sterile saline. An 8th inch Hemovac drain was left in the wound. Skin edges were reapproximated with three 0 nylon suture and a sterile dressing was applied. He was awakened, extubated and then taken to recovery area in stable condition. Other than the broken screw, there were no known intraoperative complications. Anesthesia: GETA Surgeon: Truong Ruiz MD Transitional Care Manager: Christina Morataya Estimated blood loss (mL): 30 Tourniquet time (min): 16 Drains: Yes Packing: No Pathology: other (Cultures sent to the lab) Complications: Other complications (Broken screw) Condition: stable Disposition: PACU
--- NOTE | 2019-05-17 16:53 | SUR.PHASEI ---
1653; LT ELBOW XRAYS DONE AT BEDSIDE.
--- NOTE | 2019-05-17 17:25 | SUR.PHASEI ---
1715; GEL ICE PACK APPLIED TO LT ELBOW.
[2019-05-17 18:49] LABS: Vancomycin Trough 5.4 ug/mL (10.0-20.0)
[2019-05-17] MEDS: DOCUSATE SODIUM 100 MG CAPSULE PO (19:05)
[2019-05-17] MEDS: SACCHAROMYCES BOULARDII 250 MG CAPSULE PO (19:05)
[2019-05-17] MEDS: MEMANTINE 10 MG TABLET PO (19:05)
[2019-05-17] MEDS: MUPIROCIN 2% OINT 22 GM TUBE 1 APPLIC EACH NARE (20:27)
[2019-05-18] VITALS (12 sets, daily range): BP systolic 115–154; BP diastolic 54–81; PULSE 76–106; RESP 18–24; TEMP 36.3–36.9; O2SAT 96–100
[2019-05-18 05:30] LABS: Basophils Absolute Auto 0.1 K/mm3 (0.0-0.1); Basophils Percent Auto 1.2 % (0.2-1.2); Eosinophils Absolute Auto 0.3 K/mm3 (0-0.3); Eosinophils Percent Auto 4.3 % (0-4.4); Hematocrit 37.3 % (42.0-52.0); Hemoglobin 12.7 g/dL (14.0-18.0); Immature Granulocyte Absolute 0.32 K/mm3 (0.00-0.031); Immature Granulocyte Percent A 4.6 % (0-0.5); Lymphocytes Absolute Auto 1.59 K/mm3 (0.9-3.2); Lymphocytes Percent Auto 22.9 % (18.3-44.2); Mean Corpuscular Hemoglobin 32.5 pg (26-34); Mean Corpuscular Volume 95.4 fl (80-100); Mean Platelet Volume 9.7 fl (7.4-10.4); Monocytes Absolute Auto 0.7 K/mm3 (0.1-0.6); Platelet Count Result 156 k/mm3 (150-375); Red Blood Count 3.91 M/mm3 (4.6-6.20); Red Cell Distribution Width 13.8 % (11.5-14.5); White Blood Count 6.9 K/mm3 (4.5-10.0)
[2019-05-18 05:48] LABS: Potassium 3.9 mmol/L (3.4-5.0)
[2019-05-18 05:56] LABS: Blood Urea Nitrogen 14 mg/dL (9-20); Calcium 7.9 mg/dL (8.4-10.2); Carbon Dioxide 21 mmol/L (22-30); Chloride 109 mmol/L (98-107); Estimated CRCL calculation 57 ml/min; Estimated Glomerular Filt Rate > 60; Glucose 79 mg/dL (75-110); Sodium 137 mmol/L (137-145)
--- NOTE | 2019-05-18 08:41 | WPDANESPN ---
Anes - Prog Note Post-Op Date/Time: 05/18/19 08:41 Cardiovascular status: normal Respiratory status: normal Airway patency: baseline Mental status: baseline Post-Op hydration status: normal Vital Signs: Last Vital Signs Temp 36.3 C L 05/18/19 06:00 Pulse 84 05/18/19 06:00 Resp 18 05/18/19 06:00 BP 154/81 H 05/18/19 06:00 Pulse Ox 96 05/18/19 06:00 I/O: Intake & Output 05/17/19 05/18/19 05/18/19 23:59 07:59 15:59 Intake Total 550 1200 Output Total 650 400 Balance -100 800 Laboratory Tests 05/18/19 05:04 05/18/19 05:04 05/17/19 05/18/19 05/18/19 18:13 05:04 05:04 WBC 6.9 RBC 3.91 L Hgb 12.7 L Hct 37.3 L MCV 95.4 MCH 32.5 MCHC 34.0 RDW 13.8 Plt Count 156 MPV 9.7 Immature Gran % (Auto) 4.6 H Neut % (Auto) 57.0 Lymph % (Auto) 22.9 [place] % (Auto) 10.0 H Eos % (Auto) 4.3 Baso % (Auto) 1.2 Lymph # (Auto) 1.59 [place] # (Auto) 0.7 H Eos # (Auto) 0.3 Baso # (Auto) 0.1 Abs Immat Gran (auto) 0.32 H Absolute Neuts (auto) 4.0 Absolute Nucleated RBC 0.0 Nucleated RBC % 0.0 Sodium 137 Potassium 3.9 Chloride 109 H Carbon Dioxide 21 L BUN 14 Creatinine 0.90 Estim Creat Clear Calc 57 Estimated GFR > 60 Glucose 79 Calcium 7.9 L Vancomycin Trough 5.4 L Microbiology 05/14/19 16:07 Elbow Left Wound Culture - Final Methicillin Resis Staph Aureus Post-procedural complaints: none Patient Feedback: Patient satisfied with anesthetic care.
[2019-05-18] MEDS: DOCUSATE SODIUM 100 MG CAPSULE PO ×2 (10:30→20:12)
[2019-05-18] MEDS: CYANOCOBALAMIN 1,000 MCG TABLET 1000 MCG PO (10:30)
[2019-05-18] MEDS: PANTOPRAZOLE 40 MG TABLET PO (10:30)
[2019-05-18] MEDS: SACCHAROMYCES BOULARDII 250 MG CAPSULE PO ×3 (10:30→18:05)
[2019-05-18] MEDS: MEMANTINE 10 MG TABLET PO ×2 (10:30→18:05)
[2019-05-18] MEDS: ASPIRIN 325 MG ENTERIC TABLET PO (10:30)
[2019-05-18] MEDS: ESCITALOPRAM OXALATE 5 MG TABLET PO (10:30)
[2019-05-18] MEDS: MUPIROCIN 2% OINT 22 GM TUBE 1 APPLIC EACH NARE ×2 (10:31→20:13)
--- NOTE | 2019-05-18 10:41 | PM.PNORT ---
Progress Note: A&P Assessment and Plan (1) Septic bursitis of elbow: Qualifiers: Laterality: left Qualified Code(s): M71.122 - Other infective bursitis, left elbow Code(s): M71.129 - Other infective bursitis, unspecified elbow Status: Acute Assessment and Plan: Postop day one hardware removal left elbow for septic bursitis. Doing well. Currently on IV antibiotics. Plan on leaving this dressing in place until Tuesday. Drain will be removed then. Discussed in detail with the patient's daughter yesterday. Following. Time Spent With Patient Time with patient: 15 - 25 minutes Subjective Subjective Date/Time Seen: 05/18/19 10:41 Post Op day: 1 (Hardware removal left elbow) Principal diagnosis: Septic bursitis left elbow Review of Systems Constitutional: Constitutional: Denies chills and Denies fever(s) Eyes: Eyes: Reports no additional eye complaints ENT: Reports system reviewed and no additional complaints, except as documented Cardiovascular: Cardiovascular: Denies chest pain and Denies dyspnea on exertion Respiratory: Respiratory: Reports no additional respiratory complaints and Denies dyspnea on exertion Gastrointestinal: Gastrointestinal: Denies abdominal pain and Denies bloating Exam Const: General: cooperative, no acute distress and alert Nutritional Appearance: other Orientation/consciousness: patient oriented x3 Limitations: no limitations HENMT: Head: normal to inspection Ears: hearing grossly abnormal bilaterally (Wears hearing aids) Face and sinus: face symmetric Mouth: Yes moist mucous membranes Teeth and gingiva: edentulous Eyes: Alignment and Position: alignment normal and position normal Sclera: sclerae normal Neck: Neck: normal visual inspection and nontender Chest: Chest palpation & inspection: normal inspection of the chest Resp: Effort & Inspection: normal respiratory effort and able to speak in complete sentences GI: Inspection: other Skin: General skin exam: normal color Rashes: no rashes Neuro: Motor exam (neuro): 5/5 motor strength present throughout (Left upper extremity) Sensory Exam: normal sensation Extrem: General: normal to inspection and other Other: Exam of the left elbow shows dressing intact. Small amount of serosanguineous drainage in the drain. Psych: Appearance: grossly normal Mental Status: mental status grossly normal Objective Data Vital Signs Vital Signs: Vital Signs - 24 hr 05/17/19 12:15 05/17/19 16:13 05/17/19 16:25 Temperature 98.8 F 97.4 F L Pulse Rate 67 82 80 Respiratory Rate 18 16 18 Blood Pressure 147/70 H 149/71 H 154/85 H Pulse Oximetry 100 100 100 05/17/19 16:40 05/17/19 16:55 05/17/19 17:11 Temperature Pulse Rate 74 74 65 Respiratory Rate 18 18 16 Blood Pressure 182/90 H 169/88 H 165/68 H Pulse Oximetry 100 95 95 05/17/19 17:23 05/17/19 17:39 05/17/19 17:55 Temperature 97.2 F L 97.2 F L Pulse Rate 66 70 71 Respiratory Rate 16 16 18 Blood Pressure 151/67 H 150/56 H 155/58 H Pulse Oximetry 94 95 93 05/17/19 18:25 05/18/19 02:00 05/18/19 03:40 Temperature 97.6 F 98.5 F 98.5 F Pulse Rate 68 78 78 Respiratory Rate 16 18 18 Blood Pressure 151/54 H 140/54 L 140/54 L Pulse Oximetry 95 97 97 05/18/19 04:19 05/18/19 06:00 05/18/19 09:44 Temperature 98.5 F 97.3 F L Pulse Rate 78 84 106 H Respiratory Rate 18 18 24 H Blood Pressure 140/54 L 154/81 H Pulse Oximetry 97 96 05/18/19 09:45 Temperature Pulse Rate 106 H Respiratory Rate 24 H Blood Pressure Pulse Oximetry 98 Intake/Output Intake/Output: Intake & Output 05/15/19 05/16/19 05/17/19 05/18/19 23:59 23:59 23:59 23:59 Intake Total 3700 / 3700 3620 / 3620 2490 / 2490 1200 / 1200 Output Total 1275 / 1275 2150 / 2150 1450 / 1450 400 / 400 Balance 2425 / 2425 1470 / 1470 1040 / 1040 800 / 800 Meds/Results Medications: Active Medications Generic Name Dose Route Start Last Admin Trade Name Freq PRN Re
--- NOTE | 2019-05-18 14:33 | PM.IMPN ---
Progress Note: A&P Assessment and Plan (1) Septic bursitis of elbow: Qualifiers: Laterality: left Qualified Code(s): M71.122 - Other infective bursitis, left elbow Code(s): M71.129 - Other infective bursitis, unspecified elbow Status: Acute Assessment and Plan: 05/18/19 14:33 Ivania Lezama is a 78 year old male with mild dementia no family member is present provide detailed review of symptoms most of the history is recorded from the chart and talking with the patient, patient with history of rheumatoid arthritis on and treated with Remicade, could not history patient had a fracture of the left elbow 11 years ago any to was repaired with plate and screws, the patient had injured the left elbow and developed redness swelling and presented emergency department further evaluation is seems to have significant infection with abscess and got a septic olecranon bursitis left elbow patient is seen by orthopedic surgeon and recommending patient will benefit from removing hardware which were placed 11 years ago to clean out infection. Patient has had surgery in the past, there is no complication, and stay his no history of cardiac issues he is able to ambulate and able to climb states without any chest pain or shortness of breath, patient has no new complaints is positive nasal MRSA patient is treated with Ancef and vancomycin, on 05/16 patient was taken to OR and hardware were removed from septic left elbow bursa, today POD 1 patient seen by orthopedic surgeon patient clinically stable drain in place with serosanguineous drainage, plan is to continue dressing until Tuesday and then remove the drainage, currently denies any fever or chills, daughter is present in the room. (2) Acute kidney injury: Code(s): N17.9 - Acute kidney failure, unspecified Status: Acute Assessment and Plan: Appears to be pre azotemia most likely secondary to dehydration will gently hydrate the patient and monitor kidney function (3) Dementia: Qualifiers: Dementia behavioral disturbance: with behavioral disturbance Dementia type: unspecified type Qualified Code(s): F03.91 - Unspecified dementia with behavioral disturbance Code(s): F03.90 - Unspecified dementia without behavioral disturbance Status: Acute Assessment and Plan: Patient is clinically stable (4) Urinary retention: Code(s): R33.9 - Retention of urine, unspecified Status: Acute Assessment and Plan: Will continue home regimen Subjective Date/time seen: 05/18/19 14:33 Ivania Lezama is a 78 year old male with mild dementia no family member is present provide detailed review of symptoms most of the history is recorded from the chart and talking with the patient, patient with history of rheumatoid arthritis on and treated with Remicade, could not history patient had a fracture of the left elbow 11 years ago any to was repaired with plate and screws, the patient had injured the left elbow and developed redness swelling and presented emergency department further evaluation is seems to have significant infection with abscess and got a septic olecranon bursitis left elbow patient is seen by orthopedic surgeon and recommending patient will benefit from removing hardware which were placed 11 years ago to clean out infection. Patient has had surgery in the past, there is no complication, and stay his no history of cardiac issues he is able to ambulate and able to climb states without any chest pain or shortness of breath, patient has no new complaints is positive nasal MRSA patient is treated with Ancef and vancomycin, on 05/16 patient was taken to OR and hardware were removed from septic left elbow bursa, today POD 1 patient seen by orthopedic surgeon patient clinically stable drain in place with serosanguineous drainage, plan is to continue dressing until Tuesday and then remove the drainage, currently denies any fever or chills, daughter is
--- NOTE | 2019-05-18 16:40 | WPDINFPN2 ---
Progress Note: A&P Assessment and Plan (1) Septic bursitis of elbow: Qualifiers: Laterality: left Qualified Code(s): M71.122 - Other infective bursitis, left elbow Code(s): M71.129 - Other infective bursitis, unspecified elbow Status: Acute Assessment and Plan: 1. 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 Staph aureus isolated preop, which may or may not represent the underlying pathogen. Op findings noted, culture and smear so far negative 2. RA with immunosuppression 3. Dementia 4. 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 If no adverse developments, anticipate IV therapy with Vanc thorough 06/03/19. Target trough 10-15, PharmD dosing. Subjective Date/time seen: 05/18/19 16:40 Interval history: no complaints apparent Exam Narrative: Exam Narrative: afebrile Const: General: no acute distress Neck: Other: trach in place Resp: Effort & Inspection: normal respiratory effort Auscultation: clear to auscultation bilaterally Cardio: Rate: regular rate Rhythm: regular rhythm Heart sounds: no gallops and no murmurs Skin: General skin exam: normal color and no rashes or lesions noted Extrem: Other: L elbow dressed, with drain --> bloody Objective Data Vital Signs Vital Signs: Vital Signs - 24 hr 05/17/19 16:55 05/17/19 17:11 05/17/19 17:23 Temperature Pulse Rate 74 65 66 Respiratory Rate 18 16 16 Blood Pressure 169/88 H 165/68 H 151/67 H Pulse Oximetry 95 95 94 05/17/19 17:39 05/17/19 17:55 05/17/19 18:25 Temperature 36.2 C L 36.2 C L 36.4 C Pulse Rate 70 71 68 Respiratory Rate 16 18 16 Blood Pressure 150/56 H 155/58 H 151/54 H Pulse Oximetry 95 93 95 05/18/19 02:00 05/18/19 03:40 05/18/19 04:19 Temperature 36.9 C 36.9 C 36.9 C Pulse Rate 78 78 78 Respiratory Rate 18 18 18 Blood Pressure 140/54 L 140/54 L 140/54 L Pulse Oximetry 97 97 97 05/18/19 06:00 05/18/19 09:44 05/18/19 09:45 Temperature 36.3 C L Pulse Rate 84 106 H 106 H Respiratory Rate 18 24 H 24 H Blood Pressure 154/81 H Pulse Oximetry 96 98 05/18/19 09:53 05/18/19 15:19 Temperature 36.6 C Pulse Rate 98 102 H Respiratory Rate 24 H 20 Blood Pressure 130/58 L Pulse Oximetry 100 Intake/Output Intake/Output: Intake & Output 05/15/19 05/16/19 05/17/19 05/18/19 23:59 23:59 23:59 23:59 Intake Total 3700 3620 2490 1200 Output Total 1275 2150 1450 435 Balance 2425 1470 1040 765 Meds/Results Medications: Active Medications Generic Name Dose Route Start Last Admin Trade Name Freq PRN Reason Stop Dose Admin Hydrocodone Bitart/Acetaminophen 1 tab 05/17/19 17:24 [place] 7.5-325 Mg PO Q3H PRN Pain Rated 4-6 Aspirin 325 mg 05/18/19 09:00 05/18/19 10:30 Aspirin Ec PO 325 mg QAM [facility] Administration Cyanocobalamin 1,000 mcg 05/18/19 09:00 05/18/19 10:30 Vitamin B-12 Tab PO 1,000 mcg DAILY YUKI Administration Docusate Sodium 100 mg 05/17/19 17:24 05/18/19 10:30 Colace Capsule PO 100 mg BID YUKI Administration Escitalopram Oxalate 5 mg 05/18/19 09:00 05/18/19 10:30 Lexapro PO 5 mg DAILY YUKI Administration Vancomycin HCl 1,000 mg in 250 mls @ 250 mls/hr 05/18/19 12:00 05/18/19 13:07 Vancomycin 1,000 Mg/D5w 250 Ml IVPB 250 mls/hr Q18H YUKI Administration Levalbuterol HCl 0.63 mg 05/18/19 14:00 Xopenex 1.25 Mg/3 Ml INHALATION Q6HRT YUKI Magnesium Hydroxide 30 ml 05/17/19 17:24 Milk Of Magnesia PO BID PRN Constipation Memantine 10 mg 05/17/19 17:24 05/18/19 10:30 Namenda PO 10 mg BID YUKI Administration Mupirocin 1 applic 05/16/19 09:20 05/18/19 10:31 Bactroban 2% Oint EACH NARE 05/20/19 21:01 1 applic Q12HR YUKI Administration Naproxen 500 mg 05/17/19 17:24 Naproxen PO BID PRN Pain 1-3 Non-Formulary Medication 1,250 mg 05/18/19 09:00 Megestrol [Mark
--- NOTE | 2019-05-18 18:23 | PCRCNOTE ---
Window of time for administration has passed. See next scheduled administration.
[2019-05-18] MEDS: LEVALBUTEROL NEB 1.25 MG/3 ML 0.63 MG INHALATION (19:55)
[2019-05-19] VITALS (13 sets, daily range): BP systolic 101–114; BP diastolic 43–53; PULSE 76–86; RESP 16–20; TEMP 36.2–36.3; O2SAT 93–98
[2019-05-19] MEDS: LEVALBUTEROL NEB 1.25 MG/3 ML 0.63 MG INHALATION ×4 (01:13→21:03)
[2019-05-19 05:36] LABS: Basophils Absolute Auto 0.1 K/mm3 (0.0-0.1); Basophils Percent Auto 0.8 % (0.2-1.2); Eosinophils Absolute Auto 0.2 K/mm3 (0-0.3); Eosinophils Percent Auto 2.9 % (0-4.4); Hematocrit 33.4 % (42.0-52.0); Hemoglobin 11.3 g/dL (14.0-18.0); Immature Granulocyte Absolute 0.34 K/mm3 (0.00-0.031); Immature Granulocyte Percent A 4.5 % (0-0.5); Lymphocytes Absolute Auto 1.77 K/mm3 (0.9-3.2); Lymphocytes Percent Auto 23.2 % (18.3-44.2); Mean Corpuscular HGB Conc 33.8 g/dl (32-36); Mean Corpuscular Hemoglobin 32.5 pg (26-34); Mean Platelet Volume 9.7 fl (7.4-10.4); Monocytes Absolute Auto 0.8 K/mm3 (0.1-0.6); Monocytes Percent Auto 10.4 % (2.6-8.5); Neutrophils Absolute Auto 4.5 K/mm3 (1.3-6.7); Neutrophils Percent Auto 58.2 % (45.5-73.1); Platelet Count Result 156 k/mm3 (150-375); Red Blood Count 3.48 M/mm3 (4.6-6.20); Red Cell Distribution Width 14.1 % (11.5-14.5); White Blood Count 7.6 K/mm3 (4.5-10.0)
[2019-05-19 05:56] LABS: Blood Urea Nitrogen 17 mg/dL (9-20); Calcium 7.9 mg/dL (8.4-10.2); Carbon Dioxide 22 mmol/L (22-30); Chloride 112 mmol/L (98-107); Estimated CRCL calculation 64 ml/min; Estimated Glomerular Filt Rate > 60; Glucose 96 mg/dL (75-110); Potassium 3.5 mmol/L (3.4-5.0); Sodium 136 mmol/L (137-145)
--- NOTE | 2019-05-19 07:14 | PM.PNORT ---
Progress Note: A&P Assessment and Plan (1) Septic bursitis of elbow: Qualifiers: Laterality: left Qualified Code(s): M71.122 - Other infective bursitis, left elbow Code(s): M71.129 - Other infective bursitis, unspecified elbow Status: Acute Assessment and Plan: 78-year-old male postop day two hardware removal left elbow with washout for septic bursitis. Plan on taking down dressing and removing drain on Tuesday. Currently on IV antibiotics. No new orders. following. Subjective Subjective Date/Time Seen: 05/19/19 07:14 Post Op day: 2 Principal diagnosis: Washout and hardware removal left elbow Interval history: No new complaints with this patient today. He is having very little discomfort. Review of Systems Constitutional: Constitutional: Denies chills and Denies fever(s) Eyes: Eyes: Reports no additional eye complaints ENT: Reports system reviewed and no additional complaints, except as documented Cardiovascular: Cardiovascular: Denies chest pain and Denies dyspnea on exertion Respiratory: Respiratory: Reports no additional respiratory complaints and Denies dyspnea on exertion Gastrointestinal: Gastrointestinal: Denies abdominal pain and Denies bloating Exam Const: General: cooperative, no acute distress and alert Nutritional Appearance: other Orientation/consciousness: patient oriented x3 Limitations: no limitations HENMT: Head: normal to inspection Ears: hearing grossly normal bilaterally Face and sinus: face symmetric Mouth: Yes moist mucous membranes Teeth and gingiva: edentulous Eyes: Alignment and Position: alignment normal and position normal Sclera: sclerae normal Neck: Neck: normal visual inspection and nontender Chest: Chest palpation & inspection: normal inspection of the chest Resp: Effort & Inspection: normal respiratory effort and able to speak in complete sentences GI: Inspection: other (Nontender, nondistended) Skin: General skin exam: normal color Rashes: no rashes Neuro: General: patient oriented x3 Cognition (Neuro): normal cognition Speech: normal speech Gait exam (Neuro): Other gait observations present Motor exam (neuro): 5/5 motor strength present throughout Sensory Exam: normal sensation Extrem: General: normal to inspection and other Other: Exam of the left arm reveals intact dressing. No drainage. Reported 35 mL elbow drain output over past 24 hours. Psych: Appearance: grossly normal Mental Status: mental status grossly normal Objective Data Vital Signs Vital Signs: Vital Signs - 24 hr 05/18/19 09:44 05/18/19 09:45 05/18/19 09:53 Temperature Pulse Rate 106 H 106 H 98 Respiratory Rate 24 H 24 H 24 H Blood Pressure Pulse Oximetry 98 05/18/19 15:19 05/18/19 19:55 05/18/19 20:00 Temperature 97.9 F Pulse Rate 102 H 76 Respiratory Rate 20 20 Blood Pressure 130/58 L Pulse Oximetry 100 96 05/18/19 20:02 05/18/19 21:25 05/19/19 01:14 Temperature 97.4 F L Pulse Rate 78 88 86 Respiratory Rate 20 18 18 Blood Pressure 115/59 L Pulse Oximetry 96 05/19/19 01:17 05/19/19 01:21 05/19/19 06:38 Temperature 97.4 F L Pulse Rate 82 81 Respiratory Rate 18 16 Blood Pressure 114/53 L Pulse Oximetry 97 98 Intake/Output Intake/Output: Intake & Output 05/16/19 05/17/19 05/18/19 05/19/19 23:59 23:59 23:59 23:59 Intake Total 3620 / 3620 2490 / 2490 1720 / 1720 900 / 900 Output Total 2150 / 2150 1450 / 1450 735 / 735 750 / 750 Balance 1470 / 1470 1040 / 1040 985 / 985 150 / 150 Meds/Results Medications: Active Medications Generic Name Dose Route Start Last Admin Trade Name Freq PRN Reason Stop Dose Admin Hydrocodone Bitart/Acetaminophen 1 tab 05/17/19 17:24 [place] 7.5-325 Mg PO Q3H PRN Pain Rated 4-6 Aspirin 325 mg 05/18/19 09:00 05/18/19 10:30 Aspirin Ec PO 325 mg QAM [facility] Administration Cyanocobalamin 1,000 mcg 05/18/19 09:00 05/18/19 10:30 Vitamin
[2019-05-19] MEDS: ONDANSETRON INJ 4 MG/2 ML VIAL IV PUSH (10:02)
[2019-05-19] MEDS: ASPIRIN 325 MG ENTERIC TABLET PO (10:38)
[2019-05-19] MEDS: SACCHAROMYCES BOULARDII 250 MG CAPSULE PO ×3 (10:38→21:48)
[2019-05-19] MEDS: ESCITALOPRAM OXALATE 5 MG TABLET PO (10:38)
[2019-05-19] MEDS: PANTOPRAZOLE 40 MG TABLET PO (10:38)
[2019-05-19] MEDS: MUPIROCIN 2% OINT 22 GM TUBE 1 APPLIC EACH NARE ×2 (10:39→21:48)
--- NOTE | 2019-05-19 13:44 | PM.IMPN ---
Progress Note: A&P Assessment and Plan (1) Septic bursitis of elbow: Qualifiers: Laterality: left Qualified Code(s): M71.122 - Other infective bursitis, left elbow Code(s): M71.129 - Other infective bursitis, unspecified elbow Status: Acute Assessment and Plan: 05/19/19 13:44 Ivania Lezama is a 78 year old male with mild dementia no family member is present provide detailed review of symptoms most of the history is recorded from the chart and talking with the patient, patient with history of rheumatoid arthritis on and treated with Remicade, could not history patient had a fracture of the left elbow 11 years ago any to was repaired with plate and screws, the patient had injured the left elbow and developed redness swelling and presented emergency department further evaluation is seems to have significant infection with abscess and got a septic olecranon bursitis left elbow patient is seen by orthopedic surgeon and recommending patient will benefit from removing hardware which were placed 11 years ago to clean out infection. Patient has had surgery in the past, there is no complication, and stay his no history of cardiac issues he is able to ambulate and able to climb states without any chest pain or shortness of breath, patient has no new complaints is positive nasal MRSA patient is treated with Ancef and vancomycin, on 05/16 patient was taken to OR and hardware were removed from septic left elbow bursa, today POD 2 patient is seen by orthopedic surgeon patient clinically stable drain in place with serosanguineous drainage, plan is to continue dressing until Tuesday and then remove the drainage, currently denies any fever or chills, (2) Acute kidney injury: Code(s): N17.9 - Acute kidney failure, unspecified Status: Acute Assessment and Plan: Appears to be pre azotemia most likely secondary to dehydration will gently hydrate the patient and monitor kidney function (3) Dementia: Qualifiers: Dementia type: unspecified type Dementia behavioral disturbance: with behavioral disturbance Qualified Code(s): F03.91 - Unspecified dementia with behavioral disturbance Code(s): F03.90 - Unspecified dementia without behavioral disturbance Status: Acute Assessment and Plan: Patient is clinically stable (4) Urinary retention: Code(s): R33.9 - Retention of urine, unspecified Status: Acute Assessment and Plan: Will continue home regimen Subjective Date/time seen: 05/19/19 13:44 Ivania Lezama is a 78 year old male with mild dementia no family member is present provide detailed review of symptoms most of the history is recorded from the chart and talking with the patient, patient with history of rheumatoid arthritis on and treated with Remicade, could not history patient had a fracture of the left elbow 11 years ago any to was repaired with plate and screws, the patient had injured the left elbow and developed redness swelling and presented emergency department further evaluation is seems to have significant infection with abscess and got a septic olecranon bursitis left elbow patient is seen by orthopedic surgeon and recommending patient will benefit from removing hardware which were placed 11 years ago to clean out infection. Patient has had surgery in the past, there is no complication, and stay his no history of cardiac issues he is able to ambulate and able to climb states without any chest pain or shortness of breath, patient has no new complaints is positive nasal MRSA patient is treated with Ancef and vancomycin, on 05/16 patient was taken to OR and hardware were removed from septic left elbow bursa, today POD 2 patient is seen by orthopedic surgeon patient clinically stable drain in place with serosanguineous drainage, plan is to continue dressing until Tuesday and then remove the drainage, currently denies any fever or chills, Review of Systems Review of Systems
[2019-05-19] MEDS: MEMANTINE 10 MG TABLET PO (17:14)
[2019-05-19] MEDS: MEGESTROL ACETATE (*CHEMO) ORAL SUSP 40 MG/ML SYR 800 MG PO (17:14)
[2019-05-19] MEDS: DOCUSATE SODIUM 100 MG CAPSULE PO (17:15)
[2019-05-20] VITALS (13 sets, daily range): BP systolic 111–112; BP diastolic 47–53; PULSE 62–78; RESP 16–18; TEMP 36.2–36.4; O2SAT 91–98
[2019-05-20 00:17] LABS: Vancomycin Trough 8.8 ug/mL (10.0-20.0)
[2019-05-20] MEDS: LEVALBUTEROL NEB 1.25 MG/3 ML 0.63 MG INHALATION ×4 (00:51→19:37)
--- NOTE | 2019-05-20 03:24 | PC.NURSE ---
Daylight Savings Time For Daylight Savings Time Ending in the Fall - Clocks are moved back. For Daylight Savings Time Beginning in the Spring - Clocks are moved ahead. For [facility], the time of change occurs at 0200 hrs. Time is taken from the bartender server. This entry on the patient's chart recognizes the change in time reflected during documentation. Example: 2 entries for vital signs may be charted for 0200 hrs.
[2019-05-20 05:49] LABS: Basophils Absolute Auto 0.1 K/mm3 (0.0-0.1); Basophils Percent Auto 0.7 % (0.2-1.2); Eosinophils Absolute Auto 0.2 K/mm3 (0-0.3); Eosinophils Percent Auto 2.9 % (0-4.4); Hematocrit 33.4 % (42.0-52.0); Hemoglobin 11.2 g/dL (14.0-18.0); Immature Granulocyte Absolute 0.26 K/mm3 (0.00-0.031); Immature Granulocyte Percent A 3.6 % (0-0.5); Lymphocytes Absolute Auto 1.49 K/mm3 (0.9-3.2); Lymphocytes Percent Auto 20.6 % (18.3-44.2); Mean Corpuscular HGB Conc 33.5 g/dl (32-36); Mean Corpuscular Hemoglobin 32.8 pg (26-34); Mean Corpuscular Volume 97.9 fl (80-100); Mean Platelet Volume 9.7 fl (7.4-10.4); Monocytes Absolute Auto 0.8 K/mm3 (0.1-0.6); Monocytes Percent Auto 11.2 % (2.6-8.5); Neutrophils Absolute Auto 4.4 K/mm3 (1.3-6.7); Platelet Count Result 160 k/mm3 (150-375); Red Blood Count 3.41 M/mm3 (4.6-6.20); White Blood Count 7.3 K/mm3 (4.5-10.0)
[2019-05-20 05:54] LABS: Blood Urea Nitrogen 16 mg/dL (9-20); Calcium 8.1 mg/dL (8.4-10.2); Carbon Dioxide 25 mmol/L (22-30); Chloride 109 mmol/L (98-107); Estimated CRCL calculation 57 ml/min; Estimated Glomerular Filt Rate > 60; Glucose 95 mg/dL (75-110); Sodium 136 mmol/L (137-145)
[2019-05-20] MEDS: CYANOCOBALAMIN 1,000 MCG TABLET 1000 MCG PO (10:39)
[2019-05-20] MEDS: ASPIRIN 325 MG ENTERIC TABLET PO (10:39)
[2019-05-20] MEDS: ESCITALOPRAM OXALATE 5 MG TABLET PO (10:39)
[2019-05-20] MEDS: DOCUSATE SODIUM 100 MG CAPSULE PO ×2 (10:39→18:14)
[2019-05-20] MEDS: SACCHAROMYCES BOULARDII 250 MG CAPSULE PO ×2 (10:40→18:14)
[2019-05-20] MEDS: MEMANTINE 10 MG TABLET PO ×2 (10:40→18:14)
[2019-05-20] MEDS: MUPIROCIN 2% OINT 22 GM TUBE 1 APPLIC EACH NARE ×2 (10:40→20:10)
[2019-05-20] MEDS: PANTOPRAZOLE 40 MG TABLET PO (10:40)
[2019-05-20] MEDS: MEGESTROL ACETATE (*CHEMO) ORAL SUSP 40 MG/ML SYR 800 MG PO (11:00)
--- NOTE | 2019-05-20 12:58 | PM.IMPN ---
Progress Note: A&P Assessment and Plan (1) Septic bursitis of elbow: Qualifiers: Laterality: left Qualified Code(s): M71.122 - Other infective bursitis, left elbow Code(s): M71.129 - Other infective bursitis, unspecified elbow Status: Acute Assessment and Plan: 05/20/19 12:59 Ivania Lezama is a 78 year old male with mild dementia no family member is present provide detailed review of symptoms most of the history is recorded from the chart and talking with the patient, patient with history of rheumatoid arthritis on and treated with Remicade, could not history patient had a fracture of the left elbow 11 years ago any to was repaired with plate and screws, the patient had injured the left elbow and developed redness swelling and presented emergency department further evaluation is seems to have significant infection with abscess and got a septic olecranon bursitis left elbow patient is seen by orthopedic surgeon and recommending patient will benefit from removing hardware which were placed 11 years ago to clean out infection. Patient has had surgery in the past, there is no complication, and stay his no history of cardiac issues he is able to ambulate and able to climb states without any chest pain or shortness of breath, patient has no new complaints, nasal and wound culture is positive for MRSA patient is treated with Ancef and vancomycin, on 3 patient was taken to OR and hardware were removed from septic left elbow bursa, today POD 3 patient is seen by orthopedic surgeon patient clinically stable drain in place with serosanguineous drainage, plan is to continue dressing until Tuesday and then remove the drainage, currently denies any fever or chills, (2) Acute kidney injury: Code(s): N17.9 - Acute kidney failure, unspecified Status: Acute Assessment and Plan: Appears to be pre azotemia most likely secondary to dehydration will gently hydrate the patient and monitor kidney function (3) Dementia: Qualifiers: Dementia behavioral disturbance: with behavioral disturbance Dementia type: unspecified type Qualified Code(s): F03.91 - Unspecified dementia with behavioral disturbance Code(s): F03.90 - Unspecified dementia without behavioral disturbance Status: Acute Assessment and Plan: Patient is clinically stable (4) Urinary retention: Code(s): R33.9 - Retention of urine, unspecified Status: Acute Assessment and Plan: Will continue home regimen Subjective Date/time seen: 05/20/19 12:59 Ivania Lezama is a 78 year old male with mild dementia no family member is present provide detailed review of symptoms most of the history is recorded from the chart and talking with the patient, patient with history of rheumatoid arthritis on and treated with Remicade, could not history patient had a fracture of the left elbow 11 years ago any to was repaired with plate and screws, the patient had injured the left elbow and developed redness swelling and presented emergency department further evaluation is seems to have significant infection with abscess and got a septic olecranon bursitis left elbow patient is seen by orthopedic surgeon and recommending patient will benefit from removing hardware which were placed 11 years ago to clean out infection. Patient has had surgery in the past, there is no complication, and stay his no history of cardiac issues he is able to ambulate and able to climb states without any chest pain or shortness of breath, patient has no new complaints, nasal and wound culture is positive for MRSA patient is treated with Ancef and vancomycin, on 05/16 patient was taken to OR and hardware were removed from septic left elbow bursa, today POD 3 patient is seen by orthopedic surgeon patient clinically stable drain in place with serosanguineous drainage, plan is to continue dressing until Tuesday and then remove the drainage, currently denies any fever
[2019-05-21] VITALS (12 sets, daily range): BP systolic 105–128; BP diastolic 47–68; PULSE 68–77; RESP 16–20; TEMP 36.3–36.8; O2SAT 95–97; BMI 21.2
[2019-05-21] MEDS: LEVALBUTEROL NEB 1.25 MG/3 ML 0.63 MG INHALATION ×4 (01:13→21:48)
[2019-05-21 05:23] LABS: Basophils Percent Auto 0.6 % (0.2-1.2); Eosinophils Absolute Auto 0.2 K/mm3 (0-0.3); Eosinophils Percent Auto 2.5 % (0-4.4); Hematocrit 31.3 % (42.0-52.0); Hemoglobin 10.6 g/dL (14.0-18.0); Immature Granulocyte Absolute 0.22 K/mm3 (0.00-0.031); Immature Granulocyte Percent A 3.2 % (0-0.5); Lymphocytes Absolute Auto 1.61 K/mm3 (0.9-3.2); Lymphocytes Percent Auto 23.6 % (18.3-44.2); Mean Corpuscular HGB Conc 33.9 g/dl (32-36); Mean Corpuscular Hemoglobin 32.5 pg (26-34); Mean Platelet Volume 9.7 fl (7.4-10.4); Monocytes Absolute Auto 0.6 K/mm3 (0.1-0.6); Monocytes Percent Auto 9.3 % (2.6-8.5); Neutrophils Absolute Auto 4.1 K/mm3 (1.3-6.7); Neutrophils Percent Auto 60.8 % (45.5-73.1); Platelet Count Result 154 k/mm3 (150-375); Red Blood Count 3.26 M/mm3 (4.6-6.20); Red Cell Distribution Width 13.8 % (11.5-14.5); White Blood Count 6.8 K/mm3 (4.5-10.0)
[2019-05-21 05:44] LABS: Blood Urea Nitrogen 19 mg/dL (9-20); Calcium 8.2 mg/dL (8.4-10.2); Carbon Dioxide 24 mmol/L (22-30); Chloride 108 mmol/L (98-107); Estimated CRCL calculation 64 ml/min; Estimated Glomerular Filt Rate > 60; Glucose 97 mg/dL (75-110); Potassium 4.1 mmol/L (3.4-5.0); Sodium 134 mmol/L (137-145)
[2019-05-21] MEDS: CYANOCOBALAMIN 1,000 MCG TABLET 1000 MCG PO (08:10)
[2019-05-21] MEDS: ESCITALOPRAM OXALATE 5 MG TABLET PO (08:10)
[2019-05-21] MEDS: ASPIRIN 325 MG ENTERIC TABLET PO (08:10)
[2019-05-21] MEDS: MEGESTROL ACETATE (*CHEMO) ORAL SUSP 40 MG/ML SYR 800 MG PO (08:10)
[2019-05-21] MEDS: MEMANTINE 10 MG TABLET PO ×2 (08:11→18:13)
[2019-05-21] MEDS: PANTOPRAZOLE 40 MG TABLET PO (08:11)
[2019-05-21] MEDS: SACCHAROMYCES BOULARDII 250 MG CAPSULE PO ×3 (08:11→18:13)
[2019-05-21] MEDS: DOCUSATE SODIUM 100 MG CAPSULE PO ×2 (12:22→18:13)
--- NOTE | 2019-05-21 12:34 | WPDINFPN2 ---
Progress Note: A&P Assessment and Plan (1) Septic bursitis of elbow: Qualifiers: Laterality: left Qualified Code(s): M71.122 - Other infective bursitis, left elbow Code(s): M71.129 - Other infective bursitis, unspecified elbow Status: Acute Assessment and Plan: 1. 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 MRSA isolated preop and intraoperative specimens. 2. RA with immunosuppression 3. Dementia 4. Protein calorie malnutrition 5. MRSA colonized in nares REC Vanc # 7, continue. If no adverse developments, anticipate IV therapy with Vanc thorough 06/03/19. Follow up oral therapy may well be needed. No resumption of immunuosuppresants until cured. Target trough 10-15, PharmD dosing. Discussed with patient and daughter Subjective Date/time seen: 05/21/19 12:34 Interval history: no pain Exam Narrative: Exam Narrative: afebrile Const: General: no acute distress Eyes: General: appearance normal, both eyes and all related structures Neck: Other: trach Resp: Effort & Inspection: normal respiratory effort Auscultation: clear to auscultation bilaterally Cardio: Rate: regular rate Rhythm: regular rhythm Heart sounds: no gallops and no murmurs Skin: General skin exam: normal color and no rashes or lesions noted Other: complex dressing L am, I did not remove. He has no axillary adenopathy Objective Data Vital Signs Vital Signs: Vital Signs - 24 hr 05/20/19 14:00 05/20/19 15:17 05/20/19 15:27 Temperature 36.2 C L Pulse Rate 62 75 77 Respiratory Rate 18 18 18 Blood Pressure 111/47 L Pulse Oximetry 98 05/20/19 19:35 05/20/19 19:44 05/20/19 19:47 Temperature Pulse Rate 71 71 72 Respiratory Rate 16 16 16 Blood Pressure Pulse Oximetry 95 05/20/19 21:29 05/21/19 01:15 05/21/19 01:23 Temperature 36.4 C L Pulse Rate 71 70 68 Respiratory Rate 18 16 16 Blood Pressure 111/53 L Pulse Oximetry 96 05/21/19 06:00 05/21/19 09:52 05/21/19 10:11 Temperature 36.6 C Pulse Rate 75 77 74 Respiratory Rate 16 16 20 Blood Pressure 128/68 Pulse Oximetry 96 96 Intake/Output Intake/Output: Intake & Output 05/18/19 05/19/19 05/20/19 05/21/19 22:59 22:59 23:59 23:59 Intake Total 660 Output Total 550 Balance 110 Meds/Results Medications: Active Medications Generic Name Dose Route Start Last Admin Trade Name Freq PRN Reason Stop Dose Admin Hydrocodone Bitart/Acetaminophen 1 tab 05/17/19 17:24 05/21/19 08:12 [place] 7.5-325 Mg PO 1 tab Q3H PRN Administration Pain Rated 4-6 Aspirin 325 mg 05/18/19 09:00 05/21/19 08:10 Aspirin Ec PO 325 mg QAM YUKI Administration Cyanocobalamin 1,000 mcg 05/18/19 09:00 05/21/19 08:10 Vitamin B-12 Tab PO 1,000 mcg DAILY YUKI Administration Docusate Sodium 100 mg 05/17/19 17:24 05/21/19 12:22 Colace Capsule PO 100 mg BID YUKI Administration Escitalopram Oxalate 5 mg 05/18/19 09:00 05/21/19 08:10 Lexapro PO 5 mg DAILY YUKI Administration Vancomycin HCl 1,000 mg in 250 mls @ 250 mls/hr 05/20/19 12:00 05/21/19 12:23 Vancomycin 1,000 Mg/D5w 250 Ml IVPB 200 mls/hr Q12H YUKI Administration Levalbuterol HCl 0.63 mg 05/18/19 14:00 05/21/19 09:51 Xopenex 1.25 Mg/3 Ml INHALATION 0.63 mg Q6HRT YUKI Administration Magnesium Hydroxide 30 ml 05/17/19 17:24 Milk Of Magnesia PO BID PRN Constipation Megestrol Acetate 800 mg 05/19/19 14:00 05/21/19 08:10 Megace Oral Susp PO 06/19/19 14:01 800 mg QAM YUKI Administration Memantine 10 mg 05/17/19 17:24 05/21/19 08:11 Namenda PO 10 mg BID YUKI Administration Naproxen 500 mg 05/17/19 17:24 Naproxen PO BID PRN Pain 1-3 Ondansetron HCl 4 mg 05/19/19 09:50 05/19/19 10:02 Zofran Inj IV PUSH 4 mg Q6H PRN Administration Nausea And Vomiting Pantoprazole Sodium 40 mg 05/18/19 09:00 03/
--- NOTE | 2019-05-21 14:51 | PM.PNORT ---
Progress Note: A&P Assessment and Plan (1) Septic bursitis of elbow: Qualifiers: Laterality: left Qualified Code(s): M71.122 - Other infective bursitis, left elbow Code(s): M71.129 - Other infective bursitis, unspecified elbow Status: Acute Assessment and Plan: Daily dressing change to the left elbow. Planning on being discharged with IV antibiotics. Still trying to determine whether he will go to his home or to a facility. Following. Subjective Subjective Date/Time Seen: 05/21/19 14:51 Post Op day: Six (Removal hardware and debridement left elbow) Interval history: No new complaints today. Exam Const: General: cooperative, no acute distress and alert Nutritional Appearance: other HENMT: Head: normal to inspection Ears: hearing grossly abnormal bilaterally (Hard of hearing) Face and sinus: face symmetric Mouth: Yes moist mucous membranes Teeth and gingiva: edentulous Eyes: Alignment and Position: alignment normal and position normal Sclera: sclerae normal Neck: Neck: normal visual inspection and nontender Chest: Chest palpation & inspection: normal inspection of the chest Resp: Effort & Inspection: normal respiratory effort and able to speak in complete sentences GI: Inspection: other Skin: General skin exam: normal color Rashes: no rashes Extrem: Other: Exam of the left elbow demonstrates nicely healing incision with no warmth, erythema or drainage. Drain was removed without difficulty. Full active motion in the elbow. Grossly, neurovascular status left upper extremity is intact. Psych: Appearance: grossly normal Mental Status: mental status grossly normal Objective Data Vital Signs Vital Signs: Vital Signs - 24 hr 05/20/19 15:17 05/20/19 15:27 05/20/19 19:35 Temperature Pulse Rate 75 77 71 Respiratory Rate 18 18 16 Blood Pressure Pulse Oximetry 05/20/19 19:44 05/20/19 19:47 05/20/19 21:29 Temperature 97.5 F L Pulse Rate 71 72 71 Respiratory Rate 16 16 18 Blood Pressure 111/53 L Pulse Oximetry 95 96 05/21/19 01:15 05/21/19 01:23 05/21/19 06:00 Temperature 97.8 F Pulse Rate 70 68 75 Respiratory Rate 16 16 16 Blood Pressure 128/68 Pulse Oximetry 96 05/21/19 09:52 05/21/19 10:11 Temperature Pulse Rate 77 74 Respiratory Rate 16 20 Blood Pressure Pulse Oximetry 96 Intake/Output Intake/Output: Intake & Output 05/18/19 05/19/19 05/20/19 05/21/19 22:59 22:59 23:59 23:59 Intake Total 910 / 910 Output Total 550 / 550 Balance 360 / 360 Meds/Results Medications: Active Medications Generic Name Dose Route Start Last Admin Trade Name Freq PRN Reason Stop Dose Admin Hydrocodone Bitart/Acetaminophen 1 tab 05/17/19 17:24 05/21/19 08:12 [place] 7.5-325 Mg PO 1 tab Q3H PRN Administration Pain Rated 4-6 Aspirin 325 mg 05/18/19 09:00 05/21/19 08:10 Aspirin Ec PO 325 mg QAM YUKI Administration Cyanocobalamin 1,000 mcg 05/18/19 09:00 05/21/19 08:10 Vitamin B-12 Tab PO 1,000 mcg DAILY YUKI Administration Docusate Sodium 100 mg 05/17/19 17:24 05/21/19 12:22 Colace Capsule PO 100 mg BID YUKI Administration Escitalopram Oxalate 5 mg 05/18/19 09:00 05/21/19 08:10 Lexapro PO 5 mg DAILY YUKI Administration Vancomycin HCl 1,000 mg in 250 mls @ 250 mls/hr 05/20/19 12:00 05/21/19 13:38 Vancomycin 1,000 Mg/D5w 250 Ml IVPB Infused Q12H YUKI Infusion Levalbuterol HCl 0.63 mg 05/18/19 14:00 05/21/19 09:51 Xopenex 1.25 Mg/3 Ml INHALATION 0.63 mg Q6HRT YUKI Administration Magnesium Hydroxide 30 ml 05/17/19 17:24 Milk Of Magnesia PO BID PRN Constipation Megestrol Acetate 800 mg 05/19/19 14:00 05/21/19 08:10 Megace Oral Susp PO 06/19/19 14:01 800 mg QAM YUKI Administration Memantine 10 mg 05/17/19 17:24 05/21/19 08:11 Namenda PO 10 mg BID YUKI Administration Naproxen 500 mg 05/17/19 17:24 Naproxen
--- NOTE | 2019-05-21 15:05 | PM.IMPN ---
Progress Note: A&P Assessment and Plan (1) Septic bursitis of elbow: Qualifiers: Laterality: left Qualified Code(s): M71.122 - Other infective bursitis, left elbow Code(s): M71.129 - Other infective bursitis, unspecified elbow Status: Acute Assessment and Plan: 05/21/19 15:05 Ivania Lezama is a 78 year old male with mild dementia no family member is present provide detailed review of symptoms most of the history is recorded from the chart and talking with the patient, patient with history of rheumatoid arthritis on and treated with Remicade, could not history patient had a fracture of the left elbow 11 years ago any to was repaired with plate and screws, the patient had injured the left elbow and developed redness swelling and presented emergency department further evaluation is seems to have significant infection with abscess and got a septic olecranon bursitis left elbow patient is seen by orthopedic surgeon and recommending patient will benefit from removing hardware which were placed 11 years ago to clean out infection. Patient has had surgery in the past, there is no complication, and stay his no history of cardiac issues he is able to ambulate and able to climb states without any chest pain or shortness of breath, patient has no new complaints, nasal and wound culture is positive for MRSA patient is treated with Ancef and vancomycin, on 05/16 patient was taken to OR and hardware were removed from septic left elbow bursa, POD 3 patient is seen by orthopedic surgeon patient clinically stable drain in place with serosanguineous drainage, plan is to continue dressing until Tuesday and then remove the drainage, currently denies any fever or chills, today patient was seen by orthopedic surgeon POD 6 and dressing was changed, patient was seen by Dr. Barraza recommending to continue vancomycin twice a day for until June 02, health care coordinator is a ranging home infusion and further recommendation to follow, may discharge the patient tomorrow patient is clinically stable and has no complaint (2) Acute kidney injury: Code(s): N17.9 - Acute kidney failure, unspecified Status: Acute Assessment and Plan: Appears to be pre azotemia most likely secondary to dehydration will gently hydrate the patient and monitor kidney function (3) Dementia: Qualifiers: Dementia type: unspecified type Dementia behavioral disturbance: with behavioral disturbance Qualified Code(s): F03.91 - Unspecified dementia with behavioral disturbance Code(s): F03.90 - Unspecified dementia without behavioral disturbance Status: Acute Assessment and Plan: Patient is clinically stable (4) Urinary retention: Code(s): R33.9 - Retention of urine, unspecified Status: Acute Assessment and Plan: Will continue home regimen Subjective Date/time seen: 05/21/19 15:05 Ivania Lezama is a 78 year old male with mild dementia no family member is present provide detailed review of symptoms most of the history is recorded from the chart and talking with the patient, patient with history of rheumatoid arthritis on and treated with Remicade, could not history patient had a fracture of the left elbow 11 years ago any to was repaired with plate and screws, the patient had injured the left elbow and developed redness swelling and presented emergency department further evaluation is seems to have significant infection with abscess and got a septic olecranon bursitis left elbow patient is seen by orthopedic surgeon and recommending patient will benefit from removing hardware which were placed 11 years ago to clean out infection. Patient has had surgery in the past, there is no complication, and stay his no history of cardiac issues he is able to ambulate and able to climb states without any chest pain or shortness of breath, patient has no new complaints, nasal and wound culture is positive for MRSA patient
--- NOTE | 2019-05-21 15:34 | PCNSR ---
On 05/21/19, the student, Emma Landa, provided care and completed [facility] documentation on this patient. I have reviewed the student's documentation and agree with the findings.
--- NOTE | 2019-05-21 16:40 | PC.NURSE ---
Patient has not voided all day today. Bladder scanned patient. Bladder scanner revealed 200-250 cc urine in bladder. Per ARMORED CABLE MACHINE OPERATOR, patient had 120 cc po fluid on breakfast tray and refused drink on lunch tray. Patient has had about 150cc water from water pitcher. Tried to encourage patient to drink some water and patient became very angry and agitated, stating he is not thirsty and he doesn't feel like he has to pee. Patient denies discomfort and bladder does not appear distended. Called Dr. Erazo and notified him of above. Orders received to restart IVFs and rescan bladder in 4 hours if patient does not void by then.
[2019-05-21] MEDS: SODIUM CHLORIDE 0.9% IV 1,000 ML 75 ML IV CONT (18:13)
[2019-05-21 23:41] LABS: Vancomycin Trough 16.2 ug/mL (10.0-20.0)
[2019-05-22] VITALS (11 sets, daily range): BP systolic 131–136; BP diastolic 56–92; PULSE 66–75; RESP 16–20; TEMP 36.4–36.7; O2SAT 95–98
[2019-05-22] MEDS: LEVALBUTEROL NEB 1.25 MG/3 ML 0.63 MG INHALATION ×4 (02:58→22:05)
[2019-05-22 06:12] LABS: Basophils Absolute Auto 0.1 K/mm3 (0.0-0.1); Eosinophils Absolute Auto 0.2 K/mm3 (0-0.3); Eosinophils Percent Auto 2.7 % (0-4.4); Hemoglobin 10.7 g/dL (14.0-18.0); Immature Granulocyte Absolute 0.16 K/mm3 (0.00-0.031); Immature Granulocyte Percent A 2.2 % (0-0.5); Lymphocytes Percent Auto 24.6 % (18.3-44.2); Mean Corpuscular HGB Conc 33.4 g/dl (32-36); Mean Corpuscular Hemoglobin 32.5 pg (26-34); Mean Corpuscular Volume 97.3 fl (80-100); Mean Platelet Volume 9.8 fl (7.4-10.4); Monocytes Absolute Auto 0.6 K/mm3 (0.1-0.6); Monocytes Percent Auto 7.5 % (2.6-8.5); Neutrophils Absolute Auto 4.6 K/mm3 (1.3-6.7); Platelet Count Result 174 k/mm3 (150-375); Red Blood Count 3.29 M/mm3 (4.6-6.20); Red Cell Distribution Width 13.9 % (11.5-14.5); White Blood Count 7.3 K/mm3 (4.5-10.0)
[2019-05-22 06:13] LABS: Blood Urea Nitrogen 16 mg/dL (9-20); Calcium 8.4 mg/dL (8.4-10.2); Carbon Dioxide 22 mmol/L (22-30); Chloride 110 mmol/L (98-107); Estimated CRCL calculation 64 ml/min; Estimated Glomerular Filt Rate > 60; Glucose 96 mg/dL (75-110); Sodium 136 mmol/L (137-145)
[2019-05-22] MEDS: CYANOCOBALAMIN 1,000 MCG TABLET 1000 MCG PO (08:11)
[2019-05-22] MEDS: ASPIRIN 325 MG ENTERIC TABLET PO (08:11)
[2019-05-22] MEDS: MEGESTROL ACETATE (*CHEMO) ORAL SUSP 40 MG/ML SYR 800 MG PO (08:11)
[2019-05-22] MEDS: MEMANTINE 10 MG TABLET PO ×2 (08:11→17:39)
[2019-05-22] MEDS: SACCHAROMYCES BOULARDII 250 MG CAPSULE PO ×3 (08:11→17:39)
[2019-05-22] MEDS: PANTOPRAZOLE 40 MG TABLET PO (08:12)
[2019-05-22] MEDS: ESCITALOPRAM OXALATE 5 MG TABLET PO (08:12)
[2019-05-22] MEDS: SODIUM CHLORIDE 0.9% IV 1,000 ML 75 ML IV CONT ×2 (08:22→21:54)
[2019-05-22] MEDS: DOCUSATE SODIUM 100 MG CAPSULE PO ×2 (08:22→17:39)
--- NOTE | 2019-05-22 14:02 | WPDINFPN2 ---
Progress Note: A&P Assessment and Plan (1) Septic bursitis of elbow: Qualifiers: Laterality: left Qualified Code(s): M71.122 - Other infective bursitis, left elbow Code(s): M71.129 - Other infective bursitis, unspecified elbow Status: Acute Assessment and Plan: 1. 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 MRSA isolated preop and intraoperative specimens. 2. RA with immunosuppression 3. Dementia 4. 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 If no adverse developments, anticipate IV therapy with Vanc thorough 06/03/19. Follow up oral therapy may well be needed. No resumption of immunuosuppresants until cured. Target trough 10-15, PharmD dosing. Subjective Date/time seen: 05/22/19 14:02 Interval history: no new complaints Exam Narrative: Exam Narrative: afebrile Const: General: no acute distress Extrem: Other: elbow dressed, no tenderness, no edema of hand Objective Data Vital Signs Vital Signs: Vital Signs - 24 hr 05/21/19 14:15 05/21/19 14:54 05/21/19 15:05 Temperature 36.3 C L Pulse Rate 69 76 77 Respiratory Rate 16 20 20 Blood Pressure 105/54 L Pulse Oximetry 97 05/21/19 21:48 05/21/19 21:57 05/21/19 22:00 Temperature 36.8 C Pulse Rate 76 74 71 Respiratory Rate 20 20 18 Blood Pressure 114/47 L Pulse Oximetry 97 05/21/19 22:04 05/22/19 02:58 05/22/19 03:06 Temperature Pulse Rate 74 70 75 Respiratory Rate 16 20 20 Blood Pressure Pulse Oximetry 95 05/22/19 09:48 05/22/19 09:49 05/22/19 09:57 Temperature Pulse Rate 67 72 Respiratory Rate 20 20 Blood Pressure Pulse Oximetry 95 Intake/Output Intake/Output: Intake & Output 05/19/19 05/20/19 05/21/19 05/22/19 22:59 23:59 23:59 23:59 Intake Total 1130 2120 Output Total 750 900 Balance 380 1220 Meds/Results Medications: Active Medications Generic Name Dose Route Start Last Admin Trade Name Freq PRN Reason Stop Dose Admin Hydrocodone Bitart/Acetaminophen 1 tab 05/17/19 17:24 05/22/19 05:46 [place] 7.5-325 Mg PO 1 tab Q3H PRN Administration Pain Rated 4-6 Aspirin 325 mg 05/18/19 09:00 05/22/19 08:11 Aspirin Ec PO 325 mg QAM YUKI Administration Cyanocobalamin 1,000 mcg 05/18/19 09:00 05/22/19 08:11 Vitamin B-12 Tab PO 1,000 mcg DAILY YUKI Administration Docusate Sodium 100 mg 05/17/19 17:24 05/22/19 08:22 Colace Capsule PO 100 mg BID YUKI Administration Escitalopram Oxalate 5 mg 05/18/19 09:00 05/22/19 08:12 Lexapro PO 5 mg DAILY YUKI Administration Sodium Chloride 1,000 mls @ 75 mls/hr 05/21/19 16:45 05/22/19 08:22 Normal Saline Iv IV CONT 75 mls/hr .[id number] YUKI Administration Vancomycin HCl 1,000 mg in 250 mls @ 250 mls/hr 05/22/19 06:00 05/22/19 07:30 Vancomycin 1,000 Mg/D5w 250 Ml IVPB Infused Q18H YUKI Infusion Levalbuterol HCl 0.63 mg 05/18/19 14:00 05/22/19 09:46 Xopenex 1.25 Mg/3 Ml INHALATION 0.63 mg Q6HRT YUKI Administration Magnesium Hydroxide 30 ml 05/17/19 17:24 Milk Of Magnesia PO BID PRN Constipation Megestrol Acetate 800 mg 05/19/19 14:00 05/22/19 08:11 Megace Oral Susp PO 06/19/19 14:01 800 mg QAM YUKI Administration Memantine 10 mg 05/17/19 17:24 05/22/19 08:11 Namenda PO 10 mg BID YUKI Administration Naproxen 500 mg 05/17/19 17:24 Naproxen PO BID PRN Pain 1-3 Ondansetron HCl 4 mg 05/19/19 09:50 05/19/19 10:02 Zofran Inj IV PUSH 4 mg Q6H PRN Administration Nausea And Vomiting Pantoprazole Sodium 40 mg 05/18/19 09:00 05/22/19 08:12 Protonix PO 40 mg QAM YUKI Administration Saccharomyces Boulardii 250 mg 05/16/19 13:00 05/22/19 08:11 Florastor PO 250 mg TID YUKI Administration Radiology Results: ITS Impressions Elbow X-Ray 05/17/19 17:29 IMPRESSION: Status post
--- NOTE | 2019-05-22 15:43 | PM.IMPN ---
Progress Note: A&P Assessment and Plan (1) Septic bursitis of elbow: Qualifiers: Laterality: left Qualified Code(s): M71.122 - Other infective bursitis, left elbow Code(s): M71.129 - Other infective bursitis, unspecified elbow Status: Acute Assessment and Plan: 05/22/19 15:43 Ivania Lezama is a 78 year old male with mild dementia no family member is present provide detailed review of symptoms most of the history is recorded from the chart and talking with the patient, patient with history of rheumatoid arthritis on and treated with Remicade, could not history patient had a fracture of the left elbow 11 years ago any to was repaired with plate and screws, the patient had injured the left elbow and developed redness swelling and presented emergency department further evaluation is seems to have significant infection with abscess and got a septic olecranon bursitis left elbow patient is seen by orthopedic surgeon and recommending patient will benefit from removing hardware which were placed 11 years ago to clean out infection. Patient has had surgery in the past, there is no complication, and stay his no history of cardiac issues he is able to ambulate and able to climb states without any chest pain or shortness of breath, patient has no new complaints, nasal and wound culture is positive for MRSA patient is treated with Ancef and vancomycin, on 05/16 patient was taken to OR and hardware were removed from septic left elbow bursa, POD 3 patient is seen by orthopedic surgeon patient clinically stable drain in place with serosanguineous drainage, plan is to continue dressing until Tuesday and then remove the drainage, currently denies any fever or chills, today patient was seen by orthopedic surgeon POD 6 and dressing was changed, patient was seen by Dr. Barraza recommending to continue vancomycin twice a day for until June 02, animal care service worker is a ranging home infusion and further recommendation to follow, may discharge the patient tomorrow patient is clinically stable and has no complaint awaiting home infusion arrangement (2) Acute kidney injury: Code(s): N17.9 - Acute kidney failure, unspecified Status: Acute Assessment and Plan: Appears to be pre azotemia most likely secondary to dehydration will gently hydrate the patient and monitor kidney function, patient kidney function is improving (3) Dementia: Qualifiers: Dementia type: unspecified type Dementia behavioral disturbance: with behavioral disturbance Qualified Code(s): F03.91 - Unspecified dementia with behavioral disturbance Code(s): F03.90 - Unspecified dementia without behavioral disturbance Status: Acute Assessment and Plan: Patient is clinically stable (4) Urinary retention: Code(s): R33.9 - Retention of urine, unspecified Status: Acute Assessment and Plan: Will continue home regimen Subjective Date/time seen: 05/22/19 15:43 Ivania Lezama is a 78 year old male with mild dementia no family member is present provide detailed review of symptoms most of the history is recorded from the chart and talking with the patient, patient with history of rheumatoid arthritis on and treated with Remicade, could not history patient had a fracture of the left elbow 11 years ago any to was repaired with plate and screws, the patient had injured the left elbow and developed redness swelling and presented emergency department further evaluation is seems to have significant infection with abscess and got a septic olecranon bursitis left elbow patient is seen by orthopedic surgeon and recommending patient will benefit from removing hardware which were placed 11 years ago to clean out infection. Patient has had surgery in the past, there is no complication, and stay his no history of cardiac issues he is able to ambulate and able to climb states without any chest pain or shortness of breath, patient has no n
[2019-05-23] VITALS (7 sets, daily range): BP systolic 120–132; BP diastolic 55–65; PULSE 72–98; RESP 16–20; TEMP 36.1–36.8; O2SAT 93–98
[2019-05-23] MEDS: LEVALBUTEROL NEB 1.25 MG/3 ML 0.63 MG INHALATION ×2 (03:09→11:28)
[2019-05-23] MEDS: MEGESTROL ACETATE (*CHEMO) ORAL SUSP 40 MG/ML SYR 800 MG PO (08:05)
[2019-05-23] MEDS: DOCUSATE SODIUM 100 MG CAPSULE PO (08:05)
[2019-05-23] MEDS: SACCHAROMYCES BOULARDII 250 MG CAPSULE PO ×2 (08:05→17:16)
[2019-05-23] MEDS: ASPIRIN 325 MG ENTERIC TABLET PO (08:06)
[2019-05-23] MEDS: MEMANTINE 10 MG TABLET PO ×2 (08:06→17:16)
[2019-05-23] MEDS: PANTOPRAZOLE 40 MG TABLET PO (08:06)
[2019-05-23] MEDS: ESCITALOPRAM OXALATE 5 MG TABLET PO (08:06)
[2019-05-23] MEDS: CYANOCOBALAMIN 1,000 MCG TABLET 1000 MCG PO (08:06)
[2019-05-23] MEDS: LIDOCAINE HCL 1% PF INJ 5 ML VIAL INFILTRATE (10:00)
[2019-05-23 11:28] LABS: Basophils Absolute Auto 0.1 K/mm3 (0.0-0.1); Basophils Percent Auto 0.6 % (0.2-1.2); Eosinophils Absolute Auto 0.2 K/mm3 (0-0.3); Eosinophils Percent Auto 2.7 % (0-4.4); Hematocrit 32.4 % (42.0-52.0); Hemoglobin 11.3 g/dL (14.0-18.0); Immature Granulocyte Absolute 0.17 K/mm3 (0.00-0.031); Immature Granulocyte Percent A 2.2 % (0-0.5); Lymphocytes Absolute Auto 1.54 K/mm3 (0.9-3.2); Lymphocytes Percent Auto 19.9 % (18.3-44.2); Mean Corpuscular HGB Conc 34.9 g/dl (32-36); Mean Corpuscular Hemoglobin 33.1 pg (26-34); Mean Platelet Volume 9.5 fl (7.4-10.4); Monocytes Absolute Auto 0.7 K/mm3 (0.1-0.6); Monocytes Percent Auto 8.7 % (2.6-8.5); Neutrophils Absolute Auto 5.1 K/mm3 (1.3-6.7); Neutrophils Percent Auto 65.9 % (45.5-73.1); Platelet Count Result 196 k/mm3 (150-375); Red Blood Count 3.41 M/mm3 (4.6-6.20); Red Cell Distribution Width 13.6 % (11.5-14.5); White Blood Count 7.7 K/mm3 (4.5-10.0)
--- NOTE | 2019-05-23 11:56 | WPDINFPN2 ---
Progress Note: A&P Assessment and Plan (1) Septic bursitis of elbow: Qualifiers: Laterality: left Qualified Code(s): M71.122 - Other infective bursitis, left elbow Code(s): M71.129 - Other infective bursitis, unspecified elbow Status: Acute Assessment and Plan: 1. 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 MRSA isolated preop and intraoperative specimens. 2. RA with immunosuppression 3. Dementia 4. 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 If no adverse developments, anticipate IV therapy with Vanc thorough 06/03/19. Follow up oral therapy may well be needed. No resumption of immunuosuppresants until cured. Target trough 10-15. Every 18 hour schedule is not optimal for home use -- aim for q24 hour schedule at 1700. Disc with family Subjective Date/time seen: 05/23/19 11:56 Interval history: awake and no apparent distress Exam Narrative: Exam Narrative: afebrile Const: General: no acute distress Eyes: General: appearance normal, both eyes and all related structures Resp: Effort & Inspection: normal respiratory effort Auscultation: clear to auscultation bilaterally Cardio: Rate: regular rate Rhythm: regular rhythm Heart sounds: no murmurs GI: Inspection: non-distended GI Palp: Yes Soft to palpation and No Tenderness to palpation present (GI) Extrem: Other: left elbow with sutures, no erythema no tenderness no warmth no edema, well approximated Objective Data Vital Signs Vital Signs: Vital Signs - 24 hr 05/22/19 14:33 05/22/19 15:14 05/22/19 15:24 Temperature 36.4 C Pulse Rate 73 68 70 Respiratory Rate 16 20 20 Blood Pressure 136/92 H Pulse Oximetry 98 05/22/19 22:00 05/22/19 22:06 05/22/19 22:15 Temperature 36.7 C Pulse Rate 73 68 66 Respiratory Rate 18 20 20 Blood Pressure 131/56 L Pulse Oximetry 96 05/23/19 03:00 05/23/19 03:11 05/23/19 03:12 Temperature Pulse Rate 86 77 72 Respiratory Rate 20 20 18 Blood Pressure Pulse Oximetry 95 05/23/19 06:00 05/23/19 11:33 05/23/19 11:35 Temperature 36.8 C Pulse Rate 72 87 Respiratory Rate 20 20 Blood Pressure 132/65 Pulse Oximetry 98 93 Intake/Output Intake/Output: Intake & Output 05/20/19 05/21/19 05/22/19 05/23/19 23:59 23:59 23:59 23:59 Intake Total 1130 3590 900 Output Total 750 1550 800 Balance 380 2040 100 Meds/Results Medications: Active Medications Generic Name Dose Route Start Last Admin Trade Name Freq PRN Reason Stop Dose Admin Hydrocodone Bitart/Acetaminophen 1 tab 05/17/19 17:24 05/23/19 08:04 [place] 7.5-325 Mg PO 1 tab Q3H PRN Administration Pain Rated 4-6 Aspirin 325 mg 05/18/19 09:00 05/23/19 08:06 Aspirin Ec PO 325 mg QAM YUKI Administration Cyanocobalamin 1,000 mcg 05/18/19 09:00 05/23/19 08:06 Vitamin B-12 Tab PO 1,000 mcg DAILY YUKI Administration Docusate Sodium 100 mg 05/17/19 17:24 05/23/19 08:05 Colace Capsule PO 100 mg BID YUKI Administration Escitalopram Oxalate 5 mg 05/18/19 09:00 05/23/19 08:06 Lexapro PO 5 mg DAILY YUKI Administration Sodium Chloride 1,000 mls @ 75 mls/hr 05/21/19 16:45 05/22/19 21:54 Normal Saline Iv IV CONT 75 mls/hr .[id number] YUKI Administration Vancomycin HCl 1,000 mg in 250 mls @ 250 mls/hr 05/22/19 06:00 05/23/19 00:54 Vancomycin 1,000 Mg/D5w 250 Ml IVPB Infused Q18H YUKI Infusion Levalbuterol HCl 0.63 mg 05/18/19 14:00 05/23/19 11:28 Xopenex 1.25 Mg/3 Ml INHALATION 0.63 mg Q6HRT YUKI Administration Magnesium Hydroxide 30 ml 05/17/19 17:24 Milk Of Magnesia PO BID PRN Constipation Megestrol Acetate 800 mg 05/19/19 14:00 05/23/19 08:05 Megace Oral Susp PO 06/19/19 14:01 800 mg QAM YUKI Administration Memantine 10 mg 05/17/19 17:24 05/23/19 08:06 Namenda PO 10 mg BID YUKI Administration Naproxen
[2019-05-23 12:03] LABS: Blood Urea Nitrogen 14 mg/dL (9-20); Calcium 8.3 mg/dL (8.4-10.2); Carbon Dioxide 23 mmol/L (22-30); Chloride 110 mmol/L (98-107); Estimated CRCL calculation 72 ml/min; Estimated Glomerular Filt Rate > 60; Glucose 116 mg/dL (75-110); Potassium 3.8 mmol/L (3.4-5.0); Sodium 139 mmol/L (137-145)
--- NOTE | 2019-05-23 15:54 | PM.DS ---
DS: Diagnosis Admitting Diagnosis Admitting Diagnosis: Other infective bursitis, left elbow Discharge Diagnosis (1) Septic bursitis of elbow: Qualifiers: Laterality: left Qualified Code(s): M71.122 - Other infective bursitis, left elbow Code(s): M71.129 - Other infective bursitis, unspecified elbow Status: Acute Assessment and Plan: Ivania Lezama is a 78 year old male with mild dementia no family member is present provide detailed review of symptoms most of the history is recorded from the chart and talking with the patient, patient with history of rheumatoid arthritis on and treated with Remicade, could not history patient had a fracture of the left elbow 11 years ago any to was repaired with plate and screws, the patient had injured the left elbow and developed redness swelling and presented emergency department further evaluation is seems to have significant infection with abscess and got a septic olecranon bursitis left elbow patient is seen by orthopedic surgeon and recommending patient will benefit from removing hardware which were placed 11 years ago to clean out infection. Patient has had surgery in the past, there is no complication, and stay his no history of cardiac issues he is able to ambulate and able to climb states without any chest pain or shortness of breath, patient has no new complaints, nasal and wound culture is positive for MRSA patient is treated with Ancef and vancomycin, on 3/ patient was taken to OR and hardware were removed from septic left elbow bursa, POD 3 patient is seen by orthopedic surgeon patient clinically stable drain in place with serosanguineous drainage, plan is to continue dressing until Tuesday and then remove the drainage, currently denies any fever or chills, today patient was seen by orthopedic surgeon POD 6 and dressing was changed, patient was seen by Dr. Barraza recommending to continue vancomycin once a day for until June 02. Pt has full stack java developer nurse at home who will infusion vancomycin daily for next 11 days via PICC line. Pt to have daily dressing changes. (2) Acute kidney injury: Code(s): N17.9 - Acute kidney failure, unspecified Status: Resolved Assessment and Plan: Resolved after fluid hydration, creat is 0.7. (3) Dementia: Qualifiers: Dementia behavioral disturbance: with behavioral disturbance Dementia type: unspecified type Qualified Code(s): F03.91 - Unspecified dementia with behavioral disturbance Code(s): F03.90 - Unspecified dementia without behavioral disturbance Status: Acute Assessment and Plan: Patient is clinically stable (4) Urinary retention: Code(s): R33.9 - Retention of urine, unspecified Status: Acute Assessment and Plan: Will continue home regimen DS: Summary Time Spent with Patient Time attestation: Total time spent providing and/or coordinating discharge services:38 minutes on day of discharge Exam Const: General: comfortable and no acute distress HENMT: General nose exam: Normal nares present Mouth: Yes moist mucous membranes Eyes: General: appearance normal, both eyes and all related structures Sclera: sclerae normal Neck: Neck: supple Other: Patient with a tracheostomy Resp: Effort & Inspection: normal respiratory effort Auscultation: clear to auscultation bilaterally Cardio: Rate: regular rate Rhythm: regular rhythm GI: Auscultation: normal bowel sounds Skin: Other: Left elbow with wound Neuro: Other: Patient had a laryngectomy and speaks with a voice box Extrem: General: normal to inspection Other: Left elbow wound dressing drain is in place with serosanguineous drainage Psych: Affect: Anxious affect present DS: Data Data Completed and Pending Labs on day of discharge: Labs from last 24 hours 05/23/19 05/23/19 11:10 11:10 WBC 7.7 RBC 3.41 L Hgb 11.3 L Hct 32.4 L MCV 95.0 MCH 33.1 MCHC 34.
== END 2019-05-23 18:35 | disposition home health service (06) | DRG 496 ==
LOC: ANHED 17:55 → ANH2MED 21:22
PROVIDERS: Family Medicine; Orthopaedic Surgery; Physician Assistant; Admitting Provider Internal Medicine; Emergency Provider Emergency Medicine; PCP Family Medicine; Visit Provider Family Medicine
PROC: 0PPL04Z Removal of Internal Fixation Device from Left Ulna, Open Approach (ICD-10-PCS; principal; 2019-05-17 13:00)
PROC: 0PPL04Z Removal of Internal Fixation Device from Left Ulna, Open Approach (ICD-10-PCS; CPT 20694; 2019-05-17 13:00)
DX: T84.615A Infection and inflammatory reaction due to internal fixation device of left ulna, initial encounter (principal); N17.9 Acute kidney failure, unspecified; E46 Unspecified protein-calorie malnutrition; M71.122 Other infective bursitis, left elbow; B95.62 Methicillin resistant Staphylococcus aureus infection as the cause of diseases classified elsewhere; M06.9 Rheumatoid arthritis, unspecified; E86.0 Dehydration; R33.9 Retention of urine, unspecified; K21.0 Gastro-esophageal reflux disease with esophagitis; F03.90 Unspecified dementia, unspecified severity, without behavioral disturbance, psychotic disturbance, mood disturbance, and anxiety; Z68.21 Body mass index [BMI] 21.0-21.9, adult; Z87.891 Personal history of nicotine dependence; Z85.21 Personal history of malignant neoplasm of larynx; Z90.49 Acquired absence of other specified parts of digestive tract
CPT/HCPCS: 36415; 36569; 73070; 73080; 80048; 80202; 85025; 85652; 86140; 87040; 87070; 87075; 87081; 87147; 87186; 87205; 94640; 96365; 96375; 97110; 97161; 97165; 97530; 97535; 99285; A9270; C1751; J0330; J0690; J0696; J1885; J2370; J2405; J2704; J3010; J3370; J7030; J7120

== ENCOUNTER 2019-05-27 10:18 | Inpatient (IN) | payer MEDICARE, SELFPAY ==
[2019-05-27] VITALS (12 sets, daily range): BP systolic 99–126; BP diastolic 50–78; PULSE 61–100; RESP 17–24; TEMP 36.4–36.6; O2SAT 95–98; BMI 19.8
--- NOTE | ~2019-05-27 | XR_ITS ---
XR chest 2V DATE: 05/27/2019 11:30 INDICATION: Cough. Right PIC catheter. Left arm infection. TECHNIQUE: AP and lateral views COMPARISON: 03/05/2019 2 view chest FINDINGS: Right upper extremity PIC catheter tip overlies superior cavoatrial junction. Normal heart size. There is aortic calcification. There is chronic discoid scarring in the right mid to upper lung, also present on 05/28/2013. There is minimal infiltrate or atelectasis at the lung bases. Surgical clips overlie the right lower cervical and right upper thoracic area. Surgical clips overlie the upper abdomen bilaterally. Abdominal aortic calcification. Diffuse osteopenia. There are chronic compression fracture deformities of the thoracic spine. IMPRESSION: Right upper extremity PIC catheter tip at superior cavoatrial junction Chronic discoid scarring of right lung Minimal infiltrate or atelectasis at the lung bases Reviewed, dictated and finalized at location A. IMPRESSION: Right upper extremity PIC catheter tip at superior cavoatrial junct ion Chronic discoid scarring of right lung Minimal infiltrate or atelectasis at the lung bases
--- NOTE | ~2019-05-27 | CT_ITS ---
EXAMINATION: CTA chest PE protocol DATE: 05/27/2019 14:39 INDICATION: Shortness of breath TECHNIQUE: Computed tomography angiography (CTA) of the chest was performed with 100 mL Omnipaque-350 intravenous contrast timed to evaluate the pulmonary arteries. Coronal maximum intensity projection 3D-reconstructions were created by the technologist. The dose-length product (DLP) was 385.62 mGy-cm. Automated exposure control and iterative reconstruction technique were employed. COMPARISON: None. FINDINGS: The pulmonary arteries are well-opacified. There are filling defects in subsegmental branch es of the right lower lobe. There is soft tissue density at the right hilum which exerts mass effect on the right lower lobe pulmonary arterial branch. A tracheostomy is noted. The esophagus is patulous . The heart size is normal. There are patchy areas of atelectasis in the lungs. There is moderate tho racic spondylosis. There are compression fractures of T5, T7, and T8. The gallbladder is surgically a bsent. IMPRESSION: 1. Pulmonary embolism in a subsegmental branch of the right lower lobe. 2. Soft tissue density of the right hilum exerting mass effect on the right lower lobe pulmonary tamy rial branch, reactive lymphadenopathy versus metastatic disease. These findings were discussed with Nikolay Jameson PA-C in the Emergency Department at 1502 hours on 05/27/2019. Reviewed, dictated and finalized at location A. IMPRESSION: 1. Pulmonary embolism in a subsegmental branch of the right lower lobe. 2. Soft tissue density of the right hilum exerting mass effect on the right low er lobe pulmonary arterial branch, reactive lymphadenopathy versus metastatic d isease. These findings were discussed with Nikolay Jameson PA-C in the Emergency Depart ment at 1502 hours on 05/27/2019.
--- NOTE | ~2019-05-27 | US_ITS ---
EXAMINATION: US venous doppler LE EXAM DATE: 05/28/2019 12:07 INDICATION: Pulmonary embolism. TECHNIQUE: Multiple grayscale, color flow and Doppler images of the lower extremity deep venous syste ms bilaterally were obtained and reviewed. There is no prior study for comparison. FINDINGS: Right side: The right common femoral, femoral and profunda veins demonstrate normal color flow, respi ratory variation, augmentation and compressibility. Compressibility, color flow confirmed within the right popliteal, posterior tibial, peroneal, and greater saphenous veins. Left side: The left common femoral, femoral and profunda veins demonstrate normal color flow, respira tory variation, augmentation and compressibility. Compressibility, color flow confirmed within the l eft popliteal, posterior tibial, peroneal, and greater saphenous veins. IMPRESSION: 1. No lower extremity deep venous thrombosis bilaterally. Reviewed, dictated and finalized at location A.
--- NOTE | 2019-05-27 10:45 | ECG_ITS ---
Measurements Intervals [place] Rate: 93 P: 28 [place]: 147 QRS: 44 QRSD: 125 T: 25 QT: 374 QTc: 467 Interpretive Statements SINUS RHYTHM RIGHT BUNDLE BRANCH BLOCK ANTEROLATERAL INFARCT, AGE INDETERMINATE INFERIOR INFARCT, AGE INDETERMINATE ABNORMAL ECG Electronically Signed On 05-27-2019 12:45:58 CDT by Eddie Seals D.O.
--- NOTE | 2019-05-27 11:11 | PC.NURSE ---
Patient using bedside commode to have bowel movement. Radiology waiting for patient to be finished; will notify when done.
--- NOTE | 2019-05-27 11:20 | ED.GENADULT ---
HPI - General Adult General Chief complaint: Shortness of Breath/Dyspnea <Nikolay Jameson PA-C - Last Filed: 05/27/19 18:53> Stated complaint: generalized weakness <Nikolay Jameson PA-C - Last Filed: 05/27/19 18:53> Time Seen by Provider: 05/27/19 10:24 <Nikolay Jameson PA-C - Last Filed: 05/27/19 18:53> Source: patient <NICOLE Damon Last Filed: 05/27/19 18:53> Mode of arrival: ambulatory <Nikolay Jameson PA-C - Last Filed: 05/27/19 18:53> Limitations: no limitations <Nikolay Jameson PA-C - Last Filed: 05/27/19 18:53> History of Present Illness HPI narrative: Patient presents without any complaints at this but with concerns of his 2 adult daughters. Patient was discharged from this facility on Tuesday due to infected hardware in his left elbow. Patient was taken to surgery and the area was cleaned out via Dr. Ruiz emergency medicine specialist. Patient is receiving vancomycin IV every 24 hours. Daughter state since the patient has been discharged home his activity level has decreased and they feel that he is growing weaker. His appetite and fluid intake is decreased. They report the nurse took his oxygenation levels and reported him to be in the 80s so they brought him to the emergency department today. Patient denies feeling short of breath or coughing any more often than usual. 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 Patient's daughter state they have also noted the patient's heart rate to be slightly elevated and they have noted swelling to the tops of his feet. They report the patient vomits occasionally due to his esophageal achalasia but has not been vomiting any more often than usual. They also deny fevers, but state they believe it is due to remicade. Patient denies chest pain, dizziness, or unilateral weakness. <Nikolay Jameson PA-C - Last Filed: 05/27/19 18:53> Related Data Home medications: Home Medications Medication Instructions Recorded Confirmed omeprazole 40 mg PO DAILY 03/05/19 05/27/19 naproxen 500 mg PO BID PRN 05/14/19 05/27/19 <Nikolay Jameson PA-C - Last Filed: 05/27/19 18:53> Allergies/adverse reactions: Allergies Allergy/AdvReac Type Severity Reaction Status Date / Time mirtazapine Allergy Unknown nightmares Verified 05/27/19 18:05 <Nikolay Jameson PA-C - Last Filed: 05/27/19 18:53> Review of Systems Review of Systems: Narrative: CONSTITUTIONAL: Denies fever, chills, or sweats. EYES: Denies visual changes, redness, or discharge. ENT: Denies rhinorrhea, congestion, sore throat, or otalgia. CARDIOVASCULAR: Denies chest pain, palpitations, or edema. RESPIRATORY: Reports baseline cough denies dyspnea. GASTROINTESTINAL: Denies abdominal pain, nausea, vomiting, or diarrhea. GENITOURINARY: Denies dysuria or hematuria. SKIN: Denies rash or itching. MUSCULOSKELETAL: Denies back pain, joint pain, or myalgia. NEUROLOGIC: Reports weakness denies headache, numbness, dizziness PSYCHIATRIC: Denies anxiety or depression. <Nikolay Jameson PA-C - Last Filed: 05/27/19 18:53> [facility] Past Medical History Medical History: Medical History (Updated 05/27/19 @ 18:49 by Nikolay Jameson PA-C) Acute kidney injury Cancer epiglottis, STAGE 3 Confusion Dementia Depression Dysphagia Esophageal stricture GERD with esophagitis Hard of hearing Laryngeal cancer Pneumonia Rheumatoid arthritis Serotonin syndrome <Nikolay Jameson PA-C - Last Filed: 05/27/19 18:53> Surgical History Surgical History: Surgical History (Updated 05/15/19 @ 12:44 by Truong Ruiz MD) Fracture of left olecranon process ORIF in 2008 Hx of cholecystectomy Hx of tracheostomy S/P right hip fracture bipolar replacement October 2016 <Nikolay Jameson PA-C - Last Filed: 05/27/19 18:53> Social History Social History: Social History (Reviewed 05/14/19 @ 13:21 by Salvador
[2019-05-27 11:47] LABS: Basophils Absolute Auto 0.1 K/mm3 (0.0-0.1); Basophils Percent Auto 1.3 % (0.2-1.2); Eosinophils Absolute Auto 0.3 K/mm3 (0-0.3); Eosinophils Percent Auto 3.1 % (0-4.4); Hemoglobin 12.4 g/dL (14.0-18.0); Immature Granulocyte Absolute 0.22 K/mm3 (0.00-0.031); Immature Granulocyte Percent A 2.1 % (0-0.5); Lymphocytes Absolute Auto 1.79 K/mm3 (0.9-3.2); Lymphocytes Percent Auto 17.3 % (18.3-44.2); Mean Corpuscular HGB Conc 33.5 g/dl (32-36); Mean Corpuscular Hemoglobin 32.4 pg (26-34); Mean Corpuscular Volume 96.6 fl (80-100); Mean Platelet Volume 9.8 fl (7.4-10.4); Monocytes Percent Auto 9.7 % (2.6-8.5); Neutrophils Absolute Auto 6.9 K/mm3 (1.3-6.7); Neutrophils Percent Auto 66.5 % (45.5-73.1); Platelet Count Result 234 k/mm3 (150-375); Red Blood Count 3.83 M/mm3 (4.6-6.20); Red Cell Distribution Width 14.3 % (11.5-14.5); White Blood Count 10.3 K/mm3 (4.5-10.0)
[2019-05-27 11:59] LABS: Alanine Aminotransferase 15 U/L (4-50); Albumin Level 3.5 g/dL (3.5-5.1); Alkaline Phosphatase 45 U/L (38-126); Aspartate Amino Transferase 31 U/L (17-59); Bilirubin,Total 1.4 mg/dL (0.2-1.3); Blood Urea Nitrogen 16 mg/dL (9-20); Calcium 8.9 mg/dL (8.4-10.2); Carbon Dioxide 24 mmol/L (22-30); Chloride 107 mmol/L (98-107); Estimated Glomerular Filt Rate > 60; Glucose 91 mg/dL (75-110); Sodium 136 mmol/L (137-145)
[2019-05-27 12:45] LABS: Alveolar/Arterial O2 Gradient 64.2 mmHg; Base Excess ABG -0.8 mEq/l (+/-2.0); Fractional Inspired Oxygen 21 %; HCO3 ABG 21.1 mEq/l (22.0-26.0); Oxygen Content ABG 16.6 %vol (16.0-22.0); Oxygen Saturation ABG 90.7 % (95.0-100.0); Oxyhemoglobin 89.3 % THb (90.0-100.0); PCO2 ABG 27.4 mmHg (35.0-45.0); PO2 ABG 52.7 mmHg (80.0-100.0); PO2 FiO2 Ratio Arterial Blood 2.51 %; Total Hemoglobin 13.2 g/dL (12.0-18.0); pH ABG 7.504 (7.350-7.450)
[2019-05-27 12:46] LABS: Device ROOM AIR; Modified Allen's Test Pass; Site Drawn RIGHT RADIAL
--- NOTE | 2019-05-27 14:02 | PC.NURSE ---
pt unable to urinate at this time, pt refused straight cath provider aware pt placed on 2l of O2, via trach resp contacted to admin
[2019-05-27] MEDS: ENOXAPARIN 80 MG/0.8 ML SYRINGE 70 MG SUB-Q (16:10)
--- NOTE | 2019-05-27 17:31 | ADMGEN ---
This patient, Ivania Lezama, was admitted to IMU Room 200-01. Patient/family oriented to hospital policies and general routines including ID bracelet, bed and alarms, visiting hours, pain management, procedures, bathroom and other care routines, personal items, smoking policy, room service/diet, and visiting hours. Valuables list has been completed. Information on how to activate the Rapid Response Team has been discussed. Patient/Family are encouraged to report perceived risks to care and to ask questions if they do not understand what they are told or what they should do.
--- NOTE | 2019-05-27 17:38 | PM.IMHP ---
H&P: HPI History of Present Illness Chief complaint: PE with respiratory alkalosis and Narrative: Ivania Lezama is a 78 year old male was recently discharged from the hospital after he was treated for infected hardware in his left elbow he was seen by orthopedic surgeon was taken to OR and infected hardware was removed, his blood cultures were negative, wound culture was growing MRSA patient was seen by Dr. chinchilla and was receiving vancomycin and he was discharged home with vancomycin q.day on on May 21, few days after arriving home, patient was more short of breath and was desaturating upper 80s on room air patient was brought to emergency department for further evaluation, patient is found to have segmental PE, patient has history of epgolitis cancer and he had laryngectomy, which results in vomiting on and off, patient daughter is present in the room providing most of the history, to further evaluate will do lower extremity Doppler and cardiac echo. Patient was started on Lovenox from ER, will switch him over to Eliquis or Xarelto after discussing with personal care assistant, Review of Systems Review of Systems: All systems reviewed & are unremarkable except as noted in HPI and below PMFSH Past Medical History Medical History (Updated 05/27/19 @ 17:44 by Dereck Erazo MD) Acute kidney injury Cancer epiglottis, STAGE 3 Confusion Dementia Depression Dysphagia Esophageal stricture GERD with esophagitis Hard of hearing Laryngeal cancer Pneumonia Rheumatoid arthritis Serotonin syndrome Surgical History Surgical History (Updated 05/15/19 @ 12:44 by Truong Ruiz MD) Fracture of left olecranon process ORIF in 2008 Hx of cholecystectomy Hx of tracheostomy S/P right hip fracture 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 He is listed as a full code Smoking packs per day: 1.5 Smoking cigarettes per day: 30.0 Years smoked: 45 Smoking pack-years: 67.50 Smoking status: Former smoker Tobacco type: cigarettes Smokeless tobacco user: chewing tobacco Smoking end date: 03/14/09 Additional smoking assessment comments: CURRENTLY CHEWS TOBACCO Alcohol intake: former Substance use: never Gender identity (if verbalized by the patient): Male Spiritual care concerns: No Agree to blood products: Yes Meds Home Medications and Allergies Home Medications Medication Instructions Recorded Confirmed Type omeprazole 40 mg PO DAILY 03/05/19 05/14/19 History cyanocobalamin (vitamin B-12) 1,000 mcg PO DAILY #30 cap 03/07/19 05/14/19 Rx escitalopram oxalate 5 mg tablet 5 mg PO DAILY #30 tablet 04/13/19 05/14/19 Rx memantine 10 mg tablet 10 mg PO BID #60 tablet 04/13/19 05/14/19 Rx naproxen 500 mg PO BID PRN 05/14/19 05/14/19 History Saccharomyces boulardii [Florastor] 250 mg PO TID #90 cap 05/23/19 Rx vancomycin 1,000 mg IV Q24H 11 Days #11 each 05/23/19 Rx Allergies Allergy/AdvReac Type Severity Reaction Status Date / Time mirtazapine Allergy Unknown nightmares Verified 05/27/19 10:31 Vital Signs Vital Signs - 24 hr 05/27/19 10:31 05/27/19 13:03 05/27/19 14:20 Temperature 97.9 F Pulse Rate 96 88 100 Respiratory Rate 20 22 H 18 Blood Pressure 126/74 104/52 L 105/70 Pulse Oximetry 96 96 98 05/27/19 15:02 05/27/19 15:19 05/27/19 15:55 Temperature Pulse Rate 61 86 95 Respiratory Rate 17 18 18 Blood Pressure 110/52 L 104/69 100/78 Pulse Oximetry 97 98 97 Exam Narrative: Exam Narrative: Patient is a elderly frail Const: General: comfortable and no acute distress HENMT: General nose exam: Normal nares present Mouth: Yes moist mucous membranes Eyes: General: appearance normal, both eyes and all related structures Sclera: sclerae normal Neck: Neck: supple Resp: Other: Bilateral fair air entry with minimal rhonchi Cardio: Rate: regular rate
[2019-05-28] VITALS (12 sets, daily range): BP systolic 106–132; BP diastolic 49–72; PULSE 72–99; RESP 20–30; TEMP 36.4–37.1; O2SAT 92–96
--- NOTE | 2019-05-28 | ECHO_ITS ---
Patient Info Name: Ivania Lezama Age: 78 years : 1940 Gender: Male Ht: 70 in Wt: 151 lbs BSA: 1.84 m2 HR: 91 bpm BP: 120 / 61 mmHg Heart Rhythm: Sinus Rhythm Technical Quality: Fair Exam Date: 05/28/2019 9:17 AM Exam Location: [facility] Card Pulmonary Patient Status: Inpatient Admit Date: 05/27/2019 Staff Ordering Physician: Dereck Erazo MD Medical Claims Manager: Angel Good RDCS Attending Provider: Vinh Christina MD Exam Type: CA echo doppler color flow Study Info Indications I26.99 - Other pulmonary embolism without acute cor pulmonale Complete two-dimensional, color flow and Doppler transthoracic echocardiogram is performed. History/Risk Factors Pulmonary embolism w/ SOB. Summary 1. Left ventricular chamber dimension is normal. 2. Left ventricular systolic function is normal, estimated at 60-65%. 3. The left ventricular diastolic function is grade I diastolic dysfunction. 4. E/e' 8 is minimally elevated. 5. The mitral valve has moderately calcified posterior annulus. Left Ventricle E/e' 8 is minimally elevated. Left ventricular chamber dimension is normal. Left ventricular systolic function is normal, estimated at 60-65%. The left ventricular diastolic function is grade I diastolic dysfunction. Right Ventricle Right ventricular chamber dimension is not well visualized. Left Atria Left atrial chamber dimension is normal. Right Atria Right atrial chamber dimension is not well visualized. Aortic Valve Cannot determine number of aortic valve leaflets. The aortic valve is not well visualized. There is no aortic valve stenosis. There is no aortic valve regurgitation. Pulmonic Valve There is no pulmonic regurgitation. Mitral Valve The mitral valve has moderately calcified posterior annulus. There is no mitral valve stenosis. There is no mitral valve regurgitation. Tricuspid Valve The tricuspid valve leaflets are not well visualized. There is no tricuspid valve regurgitation. Pericardium/Pleural There is no pericardial effusion. Inferior Vena Cava Normal inferior vena cava with >50% collapse upon inspiration consistent with normal right atrial pressure, 5 mmHg. Aorta The aortic root size at the sinus of Valsalva is normal. Left Ventricular Outflow Tract Name Value Normal LVOT 2D LVOT Diameter 1.9 cm LVOT Doppler LVOT Peak Gradient 4 mmHg LVOT Mean Gradient 2 mmHg LVOT VTI 15 cm LVOT VTI/AV VTI Ratio 0.7 LVOT Stroke Volume 44 ml LVOT CO 3.8 l/min LVOT CI 2.1 l/min/m2 Mitral Valve Name Value Normal MV Doppler MV Decel [place] 161 cm/s2 MV PHT
[2019-05-28 04:39] LABS: Hematocrit 33.4 % (42.0-52.0); Hemoglobin 11.2 g/dL (14.0-18.0); Mean Corpuscular HGB Conc 33.5 g/dl (32-36); Mean Corpuscular Hemoglobin 32.7 pg (26-34); Mean Corpuscular Volume 97.7 fl (80-100); Mean Platelet Volume 9.7 fl (7.4-10.4); Platelet Count Result 195 k/mm3 (150-375); Red Blood Count 3.42 M/mm3 (4.6-6.20); Red Cell Distribution Width 14.6 % (11.5-14.5); White Blood Count 8.2 K/mm3 (4.5-10.0)
[2019-05-28 04:53] LABS: Blood Urea Nitrogen 17 mg/dL (9-20); Calcium 8.5 mg/dL (8.4-10.2); Carbon Dioxide 23 mmol/L (22-30); Chloride 107 mmol/L (98-107); Estimated CRCL calculation 61 ml/min; Estimated Glomerular Filt Rate > 60; Glucose 80 mg/dL (75-110); Sodium 137 mmol/L (137-145)
[2019-05-28] MEDS: HYDROGEN PEROXIDE 3% SOLN(*SP) 473 ML BOTTLE (06:32)
[2019-05-28] MEDS: ENOXAPARIN 80 MG/0.8 ML SYRINGE 70 MG SUB-Q (06:34)
[2019-05-28] MEDS: SACCHAROMYCES BOULARDII 250 MG CAPSULE PO ×3 (09:31→16:23)
[2019-05-28] MEDS: PANTOPRAZOLE 40 MG TABLET PO ×2 (09:31→16:23)
[2019-05-28] MEDS: ESCITALOPRAM OXALATE 5 MG TABLET PO (09:31)
[2019-05-28] MEDS: CYANOCOBALAMIN 1,000 MCG TABLET 1000 MCG PO (09:31)
[2019-05-28] MEDS: MEMANTINE 10 MG TABLET PO ×2 (09:31→16:23)
[2019-05-28 15:47] LABS: Vancomycin Trough 10.9 ug/mL (10.0-20.0)
--- NOTE | 2019-05-28 16:22 | PM.DS ---
DS: Diagnosis Admitting Diagnosis Admitting Diagnosis: Other pulmonary embolism without acute cor pulmonale Discharge Diagnosis (1) Pulmonary emboli: Code(s): I26.99 - Other pulmonary embolism without acute cor pulmonale Status: Acute Assessment and Plan: Ivania Lezama is a 78 year old male was recently discharged from the hospital after he was treated for infected hardware in his left elbow he was seen by orthopedic surgeon was taken to OR and infected hardware was removed, his blood cultures were negative, wound culture was growing MRSA patient was seen by Dr. chinchilla and was receiving vancomycin and he was discharged home with vancomycin q.day on on May 21, few days after arriving home, patient was more short of breath and was desaturating upper 80s on room air patient was brought to emergency department for further evaluation, patient is found to have segmental PE, patient has history of epgolitis cancer and he had laryngectomy, which results in vomiting on and off, patient daughter is present in the room providing most of the history, to further evaluate will do lower extremity Doppler and cardiac echo. Patient was started on Lovenox from ER, will switch him over to Eliquis or Xarelto after discussing with director career services, (2) Septic bursitis of elbow: Qualifiers: Laterality: left Qualified Code(s): M71.122 - Other infective bursitis, left elbow Code(s): M71.129 - Other infective bursitis, unspecified elbow Status: Acute Assessment and Plan: Status post I and D and removal of infected hardware patient is on vancomycin which will continue (3) Cancer: Code(s): C80.1 - Malignant (primary) neoplasm, unspecified Status: Acute Assessment and Plan: Patient laryngtecmoy DS: Summary Hospital Course Reason for hospitalization: Ivania Lezama is a 78 year old male was recently discharged from the hospital after he was treated for infected hardware in his left elbow he was seen by orthopedic surgeon was taken to OR and infected hardware was removed, his blood cultures were negative, wound culture was growing MRSA patient was seen by Dr. chinchilla and was receiving vancomycin and he was discharged home with vancomycin q.day on on May 21, few days after arriving home, patient was more short of breath and was desaturating upper 80s on room air patient was brought to emergency department for further evaluation, patient is found to have segmental PE, patient has history of epgolitis cancer and he had laryngectomy, which results in vomiting on and off, patient daughter is present in the room providing most of the history, to further evaluate will do lower extremity Doppler and cardiac echo. Patient was started on Lovenox from ER, will switch him over to Eliquis or Xarelto after discussing with director career services, Hospital Course: Ivania Lezama is a 78 year old male was recently discharged from the hospital after he was treated for infected hardware in his left elbow he was seen by orthopedic surgeon was taken to OR and infected hardware was removed, his blood cultures were negative, wound culture was growing MRSA patient was seen by Dr. chinchilla and was receiving vancomycin and he was discharged home with vancomycin q.day on on May 21, few days after arriving home, patient was more short of breath and was desaturating upper 80s on room air patient was brought to emergency department for further evaluation, patient is found to have segmental PE, patient has history of epgolitis cancer and he had laryngectomy, which results in vomiting on and off, patient daughter is present in the room providing most of the history, to further evaluate will do lower extremity Doppler and cardiac echo. Patient was started on Lovenox from ER, will switch him over to Eliquis or Xarelto after discussing with director career services, bilateral lower extremity Doppler is negative for DVT similarly cardiac ec
[2019-05-28] MEDS: APIXABAN 5 MG TABLET 10 MG PO (16:23)
== END 2019-05-28 18:15 | disposition home health service (06) | DRG 176 ==
LOC: ANHED 16:28 → ANHIMU 17:34
PROVIDERS: Physician Assistant; Admitting Provider Internal Medicine; Emergency Provider General Practice; PCP Family Medicine; Visit Provider Family Medicine
DX: I26.99 Other pulmonary embolism without acute cor pulmonale (principal); E87.3 Alkalosis; M71.122 Other infective bursitis, left elbow; M06.9 Rheumatoid arthritis, unspecified; K21.0 Gastro-esophageal reflux disease with esophagitis; F32.9 Major depressive disorder, single episode, unspecified; F03.90 Unspecified dementia, unspecified severity, without behavioral disturbance, psychotic disturbance, mood disturbance, and anxiety; F17.220 Nicotine dependence, chewing tobacco, uncomplicated; Z85.21 Personal history of malignant neoplasm of larynx; Z90.49 Acquired absence of other specified parts of digestive tract
CPT/HCPCS: 36415; 36600; 71046; 71275; 80048; 80053; 80202; 82805; 85025; 85027; 87040; 87081; 87804; 93005; 93306; 93970; 96372; 99285; A9270; J1650; J3370; Q9967

== ENCOUNTER 2019-08-27 08:50 | Outpatient (CLI) | payer MEDICARE, SELFPAY ==
--- NOTE | ~2019-08-27 | MR_ITS ---
EXAMINATION: MR brain/brain stem wo/w con DATE: 08/27/2019 10:33 INDICATION: Nonpsychotic mental disorders. Dementia. Weakness. Malignant neoplasm of supraglottis. TECHNIQUE: Magnetic resonance imaging (MRI) of the brain and brainstem was performed without with 13 mL MultiHance intravenous contrast. Sequences included sagittal and axial T1-weighted FSE, axial diff usion-weighted FS EPI, axial T2*-weighted GRE, axial T2-weighted FLAIR Propeller, and axial T2-weight ed Propeller. Postcontrast sequences included axial, sagittal, and coronal T1-weighted FSE. Apparent diffusion coefficient (ADC) maps were created. COMPARISON: Brain MRI 03/05/2019 FINDINGS: There is diffuse brain volume loss. There are scattered areas of nonspecific increased T2-w eighted signal intensity in the cerebral white matter. There is increased T2-weighted signal intensit y in the central [place] with sparing of the corticospinal tracts. There is no intracranial hemorrhage, acute infarction, or abnormal intracranial mass lesion. The ventricles are normal in size. There are likely changes of ocular lens replacement surgeries. There is an old blowout fracture of medial wall of left orbit. The mastoid air cells are normal. IMPRESSION: 1. Stable moderate nonspecific cerebral white matter disease, which likely represents chronic small v essel ischemic disease. 2. 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 We have no record of pro found hyponatremia at our institution. Reviewed, dictated and finalized at location A. IMPRESSION: 1. Stable moderate nonspecific cerebral white matter disease, which likely repr esents chronic small vessel ischemic disease. 2. 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 We have no record of profound hyponatremia at our institution.
[2019-08-27 09:36] LABS: Estimated Glomerular Filt Rate > 60
== END 2019-08-27 08:51 | disposition home or self-care (01) ==
LOC: ANHIMG 08:59
PROVIDERS: PCP Family Medicine; Visit Provider Family Medicine
DX: C32.1 Malignant neoplasm of supraglottis (principal); R53.1 Weakness; F48.8 Other specified nonpsychotic mental disorders; I26.99 Other pulmonary embolism without acute cor pulmonale; R90.82 White matter disease, unspecified; G37.2 Central pontine myelinolysis
CPT/HCPCS: 36415; 70553; A9577